=== PATIENT | female | born 1955 | race Caucasian/White ===

== ENCOUNTER 2017-03-29 07:09 | Day surgery (SDC) | payer MEDICARE ==
[2017-03-29] MEDS ORDERED: NACL 0.9% 500 ML 500 ML IV SCH (08:00)
[2017-03-29 08:09] LABS: Basophils % (Auto) 0.5 % (0.0-1.8); Hematocrit 31.4 % (30.3-42.9); Hemoglobin 10.5 gm/dl (10.1-14.3); Mean Corpuscular HGB Conc 33 % (30-34); Mean Corpuscular Hemoglobin 30 pg (28-32); Mean Corpuscular Volume 91 fl (79-97); Platelet Count 184 K/mm3 (140-440); Red Blood Count 3.47 M/mm3 (3.65-5.03); Red Cell Distribution Width 13.9 % (13.2-15.2); White Blood Count 5.6 K/mm3 (4.5-11.0)
[2017-03-29 08:19] LABS: INR 0.95 (0.87-1.13)
[2017-03-29 08:20] LABS: Anion Gap 15 mmol/L; BUN/Creatinine Ratio 27.14; Blood Urea Nitrogen 19 mg/dL (7-17); Carbon Dioxide 26 mmol/L (22-30); Chloride 103.6 mmol/L (98-107); Glucose 124 mg/dL (65-100); Potassium 3.5 mmol/L (3.6-5.0); Sodium 141 mmol/L (137-145)
[2017-03-29] MEDS ORDERED: HEPARIN/NS 5000 UNIT/500ML(CATH LAB) 1,000 ML IR ONE (08:35)
[2017-03-29] MEDS ORDERED: HEPARIN 10,000 UNITS/10 ML ONE (08:35)
[2017-03-29] MEDS ORDERED: XYLOCAINE 2% INFILTRATI ONE (08:35)
[2017-03-29] MEDS ORDERED: NITROGLYCERIN SYRINGE 0 ML ONE (08:35)
[2017-03-29] MEDS ORDERED: CALAN ONE (08:35)
[2017-03-29] MEDS ORDERED: VERSED ONE (08:36)
[2017-03-29] MEDS ORDERED: SUBLIMAZE ONE (08:37)
[2017-03-29] MEDS ORDERED: ECOTRIN PO ONE (09:00)
--- NOTE | 2017-03-29 09:59 | Cardiac Catherization Report ---
CARDIAC CATHETERIZATION REFERRING PHYSICIAN: Taiwo Mireles M.D. INDICATION FOR PROCEDURE: The patient is a very pleasant 62-year-old female with a history of tobacco abuse, coronary artery disease, coronary bypass surgery, diabetes, hypertension, hyperlipidemia, and peripheral vascular disease, who had an abnormal stress test, was having some recurrent chest pain. She is referred for left heart catheterization. Risks, benefits, and potential alternatives explained at length prior to obtaining informed consent. She is on beta blockade and long-acting nitrate, referred for left heart catheterization. Risks, benefits, and potential alternatives explained at length. PROCEDURE IN DETAIL: The patient was brought to the catheterization lab in a postabsorptive state, prepped and draped in sterile fashion. We went groin and given her bypass, 8 mL of 2% lidocaine used to anesthetize the right groin. A standard 6-[place] sheath used to cannulate the right common femoral artery via modified Seldinger technique. All exchanges were performed to exchange a J-tip guidewire. JL3.5 catheter used to engage left main. No dampening or ventricularization. Cineangiography performed in all projections. JR4 catheter used to cross the aortic valve under fluoroscopic guidance. Left ventriculography performed in 30 ANDRE and 30 SINHALA projections via hand injections, catheter flushed. Manual pullback performed with continuous pressure monitoring. Catheter used to engage the right coronary. No dampening or ventricularization. Cineangiography performed in all projections. Next, catheter used to engage the SVG to diagonal. Cineangiography performed in all projections. Next, catheter was used to engage the left subclavian. Catheter was advanced carefully over wire and to engage the BAIRD selectively. Selective BAIRD angiography is performed. Catheter was removed carefully from the left subclavian over a wire, sheath removed. Manual pressured used to achieve hemostasis. DATA: Aortic pressure is 120/60, LV pressure is 120, LVEDP of 24 mmHg. Left ventriculography revealed normal systolic performance with estimated ejection fraction of 55-60%. No evidence of aortic stenosis. CORONARY ANATOMY: This is a right dominant system. Right coronary is a moderate sized vessel, courses AV groove, distally bifurcates in the posterior and descending, posterolateral branch. Noticed there is a 25% proximal right coronary stenosis. No other significant disease identified. Right to left collaterals were identified. The SVG to the first diagonal is widely patent, small distal vessel disease. The left main is patent. The left circumflex is patent. There is a 25% ostial left circumflex stenosis, 30-40% mid left circumflex stenosis, this is a small vessel. LAD is a moderate sized vessel, courses anterior intergroove, is occluded in the mid segment. BAIRD to LAD is widely patent. SVG to diagonal is widely patent. Diffuse distal moderate small vessel disease is identified. CONCLUSIONS: 1. Severe [place] coronary artery disease, the mid LAD with chronic total occlusion, nonobstructive disease in the left circumflex and right coronary including 25% proximal right coronary and 30 to 40% mid left circumflex small vessels, patent BAIRD to LAD, patent SVG to diagonal. 2. Preserved left ventricular function, estimated ejection fraction of 55-60%. 3. No evidence of aortic stenosis. Recommend aggressive risk factor modification. The patient continues to smoke, absolutely needs to quit smoking, consider Ranexa therapy. Results of the procedure were explained at length to the patient and family. All questions and concerns were addressed. The patient will follow up with Dr. Mireles in the office. Standard Groin care. JOB# [id number] SBM/NTS
[2017-03-29] MEDS ORDERED: PLAVIX PO SCH (10:00)
[2017-03-29 15:52] VITALS: BP 125/52
--- NOTE | 2017-04-02 16:26 | Short Stay Summary ---
Short Stay Documentation Date of service: 04/02/17 - History H&P: obtained from office - Allergies and Medications Current Medications: Allergies lisinopril Allergy (Severe, Verified 11/12/13 07:03) Shortness of Breath constant coughing codeine Allergy (Intermediate, Verified 11/12/13 07:03) Itching Tbaheai-Fnq-Bad Reductase Inhibitor Allergy (Verified 02/20/16 13:06) Unknown Home Medications Medication Instructions Recorded Confirmed Last Taken Type Carvedilol [Coreg] 25 mg PO BID 11/12/13 03/29/17 03/28/17 History Gabapentin 300 mg PO TID 11/12/13 03/29/17 03/28/17 History Insulin Glargine,Hum.rec.anlog 64 units SQ HS 11/12/13 03/29/17 03/28/17 History [Lantus Solostar] Insulin NPL/Insulin Lispro 20 units SQ TID 11/12/13 03/29/17 03/28/17 History [HumaLOG Mix 50-50 Kwikpen] Isosorbide Mononitrate [Isosorbide 120 mg PO DAILY 11/12/13 03/29/17 03/28/17 History Mononitrate ER (IMDUR)] Losartan/Hydrochlorothiazide 1 tab PO DAILY 11/12/13 03/29/17 03/28/17 History [Hyzaar 100-25 TAB] Metformin HCl [metFORMIN ER] 500 mg PO BID 11/12/13 03/29/17 03/28/17 History traMADol [Ultram 50 MG tab] 50 mg PO Q6HR PRN #20 tablet 03/28/15 03/29/1703/28 Rx Aspirin EC [Ecotrin] 325 mg PO QDAY 03/29/17 03/29/17 03/28/17 History Clopidogrel [Plavix] 75 mg PO QDAY 03/29/17 03/29/17 03/27/17 History Furosemide [Lasix] 20 mg PO QDAY 03/29/17 03/29/17 03/28/17 History Gemfibrozil [Lopid] 600 mg PO BID 03/29/17 03/29/17 03/28/17 History Melatonin [Vitajoy] 5 mg PO HS PRN 03/29/17 03/29/17 2 Weeks Ago History Nitrostat 0.4 mg SL PRN PRN 03/29/17 03/29/17 03/28/17 History Ranitidine HCl [Heartburn Relief] 150 mg PO BID 03/29/17 03/29/17 03/27/17 History amLODIPine [Norvasc] 5 mg PO DAILY 03/29/17 03/29/17 03/28/17 History - Brief post op/procedure progress note Date of procedure: 03/29/17 Pre-op diagnosis: abnormal stress test Post-op diagnosis: same Procedure: C - see cath report Anesthesia: local Estimated blood loss: none Condition: stable - Disposition Condition at discharge: Stable Disposition: DC-01 TO HOME OR SELFCARE - Discharge Diagnoses (1) Abnormal stress test Status: Acute (2) Chest pain Status: Acute Qualifiers: Chest pain type: C Ischemic chest pain type: I (3) CAD (coronary artery disease) Status: Chronic Qualifiers: Coronary Disease-Associated Artery/Lesion type: C [place] vs. transplanted heart: N Associated angina: A (4) Hx of CABG Status: Chronic Short Stay Discharge Plan Activity: advance as tolerated Diet: low fat, low cholesterol, low salt Wound: open to air, keep clean and dry, per your surgeon's advice Follow up with: RENARD KELLY MD [Primary Care Provider] - 7 Days Forms: CardCath PCI D/C Instructions
== END 2017-03-29 14:30 | disposition home or self-care (01) ==
LOC: CATHLABREC 07:09
PROVIDERS: ATTEND Internal Medicine
DX: I25.10 Atherosclerotic heart disease of native coronary artery without angina pectoris (principal); I11.0 Hypertensive heart disease with heart failure; I50.42 Chronic combined systolic (congestive) and diastolic (congestive) heart failure; F17.210 Nicotine dependence, cigarettes, uncomplicated; E11.9 Type 2 diabetes mellitus without complications; E78.5 Hyperlipidemia, unspecified; E66.9 Obesity, unspecified; Z68.36 Body mass index [BMI] 36.0-36.9, adult; Z98.51 Tubal ligation status; Z88.5 Allergy status to narcotic agent; Z88.8 Allergy status to other drugs, medicaments and biological substances; Z79.4 Long term (current) use of insulin; Z79.899 Other long term (current) drug therapy; Z79.01 Long term (current) use of anticoagulants; Z79.82 Long term (current) use of aspirin; Z86.79 Personal history of other diseases of the circulatory system; Z98.890 Other specified postprocedural states; Z82.49 Family history of ischemic heart disease and other diseases of the circulatory system
CPT/HCPCS: 36415; 80048; 82962; 85025; 85610; 85730; 93005; 93010; 93459; C1769; C1894; J1644; J2250; J3010; J7040; Q9967

== ENCOUNTER 2017-12-23 10:52 | Observation (INO) | payer MEDICARE ==
[2017-12-23 11:36] LABS: Basophils % (Auto) 0.5 % (0.0-1.8); Eosinophils % (Auto) 0.5 % (0.0-4.3); Hematocrit 30.8 % (30.3-42.9); Hemoglobin 9.6 gm/dl (10.1-14.3); Lymphocytes # (Auto) 1.1 K/mm3 (1.2-5.4); Lymphocytes % (Auto) 17.2 % (13.4-35.0); Mean Corpuscular HGB Conc 31 % (30-34); Mean Corpuscular Volume 75 fl (79-97); Monocytes # (Auto) 0.5 K/mm3 (0.0-0.8); Monocytes % (Auto) 7.9 % (0.0-7.3); Platelet Count 195 K/mm3 (140-440); Red Blood Count 4.13 M/mm3 (3.65-5.03); Red Cell Distribution Width 17.6 % (13.2-15.2)
[2017-12-23 11:38] LABS: Mean Corpuscular Hemoglobin 23 pg (28-32)
[2017-12-23] MEDS ORDERED: ZOFRAN IV ONE (11:42)
[2017-12-23] MEDS ORDERED: SUBLIMAZE IV ONE ×2 (11:42→14:11)
[2017-12-23 11:50] LABS: Alanine Aminotransferase 13 units/L (7-56); Albumin 3.5 g/dL (3.9-5); BUN/Creatinine Ratio 18; Blood Urea Nitrogen 11 mg/dL (7-17); Calcium 9.4 mg/dL (8.4-10.2); Hemolysis Index 3
--- NOTE | 2017-12-23 12:05 | Emergency Department Report ---
HPI - General Chief Complaint: Abdominal Pain Time Seen by Provider: 12/23/17 11:34 - HPI HPI: Room 6 The patient is a 62-year-old female presented with a chief complaint of abdominal pain nausea and vomiting. The patient states 2 days ago after eating fish, shrimp and hush puppies from [employer] she began developing nausea vomiting and diarrhea. The patient states the symptoms began approximately one hour after eating. The patient states she has some epigastric abdominal pain but then the pain has moved to her right flank. He denies dysuria or hematuria. Patient denies fever. The patient gives her pain a score of 8/10 Location: [See above] Duration: Constant 3 days Quality: Pain Severity: 8/10 Modifying factors: [see above] Context: [see above] Mode of transportation: [not driving] ED Past Medical Hx - Past Medical History Hx Hypertension: Yes Hx Congestive Heart Failure: Yes Hx Diabetes: Yes Hx Arthritis: Yes Hx Kidney Stones: Yes Additional medical history: Lithotripsy, stent, urosepsis, kidney stones. dvt - Surgical History Hx Open Heart Surgery: Yes (2011) Hx Cholecystectomy: Yes (1975) Additional Surgical History: stents in legs - Family History Family history: no significant - Social History Smoking Status: Former Smoker (none times less than 1 month) Substance Use Type: None - Medications Home Medications: Home Medications Medication Instructions Recorded Confirmed Last Taken Type Carvedilol [Coreg] 25 mg PO BID 11/12/13 12/23/17 03/28/17 History Gabapentin 600 mg PO TID 11/12/13 12/23/17 03/28/17 History Insulin Lispro Protamin/Lispro 20 units SQ TID 11/12/13 12/23/17 03/28/17 History [HumaLOG Mix 50-50 Kwikpen] Isosorbide Mononitrate [Isosorbide 120 mg PO DAILY 11/12/13 12/23/17 03/28/17 History Mononitrate ER (IMDUR)] traMADol [Ultram 50 MG tab] 50 mg PO Q6HR PRN #20 tablet 03/28/15 12/23/1703/28 Rx Furosemide [Lasix] 20 mg PO QDAY 03/29/17 12/23/17 03/28/17 History Gemfibrozil [Lopid] 600 mg PO BID 03/29/17 12/23/17 03/28/17 History amLODIPine [Norvasc] 5 mg PO DAILY 03/29/17 12/23/17 03/28/17 History Insulin Glargine,Hum.rec.anlog 60 units SUB-Q HS 12/23/17 12/23/17 Unknown History [Basaglar Kwikpen U-100] Varenicline Tartrate [Chantix] 1 mg PO BID 12/23/17 12/23/17 Unknown History metFORMIN [Glucophage] 500 mg PO BID 12/23/17 12/23/17 Unknown History ED Review of Systems ROS: Stated complaint: NAUSE/VOMITING/DIARRHEA Other details as noted in HPI Constitutional: denies: fever Eyes: denies: eye pain ENT: denies: throat pain Cardiovascular: denies: chest pain Gastrointestinal: abdominal pain, nausea, vomiting, diarrhea Genitourinary: denies: dysuria Musculoskeletal: denies: back pain Neurological: denies: headache Physical Exam - Physical Exam Vital Signs: Vital Signs 12/23/17 11:09 Temperature 98.4 F Pulse Rate 60 Respiratory 19 Rate Blood Pressure 138/97 O2 Sat by Pulse 98 Oximetry Physical Exam: GENERAL: The patient is well-developed well-nourished female lying on stretcher appearing to be in mild discomfort. [] HEENT: Normocephalic. Atraumatic. Extraocular motions are intact. Patient has moist mucous membranes. NECK: Supple. Trachea midline CHEST/LUNGS: Clear to auscultation. There is no respiratory distress noted. HEART/CARDIOVASCULAR: Regular. There is no tachycardia. There is no gallop rub or murmur. ABDOMEN: Abdomen is soft, nontender to palpation. Patient complains of pain in the right flank. Patient has normal bowel sounds. There is no abdominal distention. SKIN: There is no rash. There is no edema. There is no diaphoresis. NEURO: The patient is awake, alert, and oriented. The patient is cooperative. The patient has normal speech MUSCULOSKELETAL: There is no evidence of acute injury. ED Course Vital Signs 12/23/17 11:09 Temperature 98.4 F Pulse Rate 60 Respiratory 19 Rate Blood Pressure 138/97 O2 Sat by Pulse 98 Oximetry - Reevaluation(s) Reevaluation #1: 12/23/17 13:14 Patient resting comfortably. No complaints currently Reevaluation #2: 12/23/17 14:44 Informed by nursing that the patient began complaining of chest pressure. The patient states she got short of breath, diaphoretic and nauseous but did not vomit. The patient states her pressure lasted for approximately 1 minute and then resolved. Patient has extensive cardiac history, subsequently the patient will be admitted to the hospital for further observation ED Medical Decision Making - Lab Data Result diagrams: 12/23/17 Unknown 12/23/17 Unknown Laboratory Tests 12/23/17 12/23/17 12/23/17 14:42 Unknown Unknown WBC 6.6 RBC 4.13 Hgb 9.6 L Hct 30.8 MCV 75 L MCH 23 L MCHC 31 RDW 17.6 H Plt Count 195 Lymph % (Auto) 17.2 [place] % (Auto) 7.9 H Eos % (Auto) 0.5 Baso % (Auto) 0.5 Lymph # 1.1 L [place] # 0.5 Eos # 0.0 Baso # 0.0 Seg Neutrophils % 73.9 H Seg Neutrophils # 4.9 Sodium 137 Potassium 4.2 Chloride 100.0 Carbon Dioxide 24 Anion Gap 17 BUN 11 Creatinine 0.6 L Estimated GFR > 60 BUN/Creatinine Ratio 18 Glucose 143 H Calcium 9.4 Total Bilirubin 0.70 AST 31 ALT 13 Alkaline Phosphatase 170 H Total Creatine Kinase 119 CK-MB (CK-2) 1.8 CK-MB (CK-2) Rel Index 1.5 Troponin T < 0.010 Total Protein 7.8 Albumin 3.5 L Albumin/Globulin Ratio 0.8 Lipase 12/23/17 Unknown WBC RBC Hgb Hct MCV MCH MCHC RDW Plt Count Lymph % (Auto) [place] % (Auto) Eos % (Auto) Baso % (Auto) Lymph # [place] # Eos # Baso # Seg Neutrophils % Seg Neutrophils # Sodium Potassium Chloride Carbon Dioxide Anion Gap BUN Creatinine Estimated GFR BUN/Creatinine Ratio Glucose Calcium Total Bilirubin AST ALT Alkaline Phosphatase Total Creatine Kinase CK-MB (CK-2) CK-MB (CK-2) Rel Index Troponin T Total Protein Albumin Albumin/Globulin Ratio Lipase 25 Laboratory Tests 12/23/17 12/23/17 12/23/17 14:08 14:42 Unknown WBC 6.6 RBC 4.13 Hgb 9.6 L Hct 30.8 MCV 75 L MCH 23 L MCHC 31 RDW 17.6 H Plt Count 195 Lymph % (Auto) 17.2 [place] % (Auto) 7.9 H Eos % (Auto) 0.5 Baso % (Auto) 0.5 Lymph # 1.1 L [place] # 0.5 Eos # 0.0 Baso # 0.0 Seg Neutrophils % 73.9 H Seg Neutrophils # 4.9 Sodium Potassium Chloride Carbon Dioxide Anion Gap BUN Creatinine Estimated GFR BUN/Creatinine Ratio Glucose Calcium Total Bilirubin AST ALT Alkaline Phosphatase Total Creatine Kinase 119 CK-MB (CK-2) 1.8 CK-MB (CK-2) Rel Index 1.5 Troponin T < 0.010 Total Protein Albumin Albumin/Globulin Ratio Lipase Urine Color Yellow Urine Turbidity Clear Urine pH 6.0 Ur Specific [place] 1.026 Urine Protein 30 mg/dl Urine Glucose (UA) Neg Urine Ketones Tr Urine Blood Neg Urine Nitrite Neg Urine Bilirubin Neg Urine Urobilinogen < 2.0 Ur Leukocyte Esterase Neg Urine WBC (Auto) 1.0 Urine RBC (Auto) < 1.0 U Epithel Cells (Auto) < 1.0 Urine Bacteria (Auto) 1+ Urine Mucus Few 12/23/17 12/23/17 Unknown Unknown WBC RBC Hgb Hct MCV MCH MCHC RDW Plt Count Lymph % (Auto) [place] % (Auto) Eos % (Auto) Baso % (Auto) Lymph # [place] # Eos # Baso # Seg Neutrophils % Seg Neutrophils # Sodium 137 Potassium 4.2 Chloride 100.0 Carbon Dioxide 24 Anion Gap 17 BUN 11 Creatinine 0.6 L Estimated GFR > 60 BUN/Creatinine Ratio 18 Glucose 143 H Calcium 9.4 Total Bilirubin 0.70 AST 31 ALT 13 Alkaline Phosphatase 170 H Total Creatine Kinase CK-MB (CK-2) CK-MB (CK-2) Rel Index Troponin T Total Protein 7.8 Albumin 3.5 L Albumin/Globulin Ratio 0.8 Lipase 25 Urine Color Urine Turbidity Urine pH Ur Specific [place] Urine Protein Urine Glucose (UA) Urine Ketones Urine Blood Urine Nitrite Urine Bilirubin Urine Urobilinogen Ur Leukocyte Esterase Urine WBC (Auto) Urine RBC (Auto) U Epithel Cells (Auto) Urine Bacteria (Auto) Urine Mucus - EKG Data -: EKG Interpreted by Me EKG shows normal: sinus rhythm Rate: normal - EKG Data When compared to previous EKG there are: previous EKG unavailable Interpretation: other (no ischemic changes seen) - Radiology Data Radiology results: report reviewed (CT abdomen and pelvis), image reviewed (CT abdomen and pelvis) CT abdomen and pelvis (read by radiologist)-no acute process noted in the abdomen or pelvis - Differential Diagnosis foodborne illness, gastroenteritis, partial small bowel obstruction Critical care attestation.: If time is entered above; I have spent that time in minutes in the direct care of this critically ill patient, excluding procedure time. ED Disposition Clinical Impression: Acute abdominal pain, Gastroenteritis, Chest pain Disposition: OP ADMIT IP TO THIS HOSP Is pt being admited?: Yes Does the pt Need Aspirin: Yes Condition: Fair Instructions: Chest Pain (ED), Abdominal Pain (ED) Referrals: PRIMARY CARE, [Primary Care Provider] - 3-5 Days Time of Disposition: 16:16 (hospitalist notified (Dr Murphy))
[2017-12-23] MEDS ORDERED: NITRO-BID 2% TP ONE (14:31)
[2017-12-23 15:25] LABS: Creatine Kinase MB 1.8 ng/mL (0.0-4.0)
--- NOTE | 2017-12-23 15:26 | Cat Scan Report ---
CT ABDOMEN PELVIS WITH CONTRAST: HISTORY: Right flank pain, nausea, vomiting, diarrhea. COMPARISON: none. TECHNIQUE: Helical CT in 1.25mm intervals following IV contrast. Sagittal and coronal reconstructions. FINDINGS: Lung bases: The visualized lung bases are adequately aerated. Borderline to mild cardiomegaly is suspected. Liver: There is subtle surface nodularity in the liver as well as mild enlargement of the left hepatic lobe and caudate lobe consistent with mild cirrhosis. No focal liver mass is identified. Biliary system: Cholecystectomy has been performed. No biliary dilatation. Pancreas: Normal. Spleen: Normal. 11.3 cm. Kidneys/ureters/bladder: There are a few scattered cysts in both kidneys. The largest cyst measures 3.8 cm in the superior left kidney. There is no evidence for nephrolithiasis, hydronephrosis or evidence of pyelonephritis. The ureters and bladder are unremarkable. Adrenal glands: Normal. Aorta: Moderate diffuse calcifications. No stenosis or aneurysm. Intestines: Unremarkable given no oral contrast was administered. Appendix: Normal. Pelvic viscera: Normal. Ascites: None. Adenopathy: None. Musculoskeletal: Moderate thoracolumbar spondylosis. No fracture or suspicious bony lesion is identified. IMPRESSION: No acute process is identified in the abdomen or pelvis. Mild cirrhosis. Cholecystectomy. Bilateral renal cysts.
[2017-12-23] MEDS ORDERED: ASPIRIN PO ONE (15:41)
[2017-12-23 16:03] LABS: Bacteria,Urine 1+ /HPF (Negative); Bilirubin,Urine NEG (Negative); Blood,Urine NEG (Negative); Color,Urine Yellow (Yellow); Mucus,Urine FEW /HPF; RBC,Urine < 1.0 /HPF (0.0-6.0); Urobilinogen,Urine < 2.0 mg/dL (<2.0)
[2017-12-23] MEDS: MORPHINE IV PRN (17:23)
[2017-12-23] MEDS: ZOFRAN IV PRN ×2 (17:23→22:56)
--- NOTE | 2017-12-23 17:47 | XRay Report ---
FINAL REPORT EXAM: XR CHEST 1V AP HISTORY: chest pain TECHNIQUE: Frontal chest radiograph. PRIORS: None. FINDINGS: Median sternotomy wires are seen with fracturing of several of the median sternotomy wires. There is mild cardiomegaly. No focal consolidation. No pulmonary edema. No pleural effusion. No pneumothorax. No acute osseous abnormality. IMPRESSION: 1. No acute cardiopulmonary process. 2. Mild cardiomegaly. 3. Median sternotomy wires with fracturing of several of the wires.
--- NOTE | 2017-12-24 00:34 | Event Note ---
Date: 12/23/17 See dictated H/p in the reports
[2017-12-24] MEDS ORDERED: ULTRAM PO PRN (00:38)
[2017-12-24] MEDS ORDERED: SODIUM CHLORIDE FLUSH SYRINGE 10 ML IV PRN (00:43)
[2017-12-24] MEDS ORDERED: ZOFRAN IV PRN (00:43)
[2017-12-24] MEDS ORDERED: TYLENOL PO PRN (00:43)
[2017-12-24] MEDS ORDERED: NACL 0.9% 1000 ML 1,000 ML IV SCH (01:00)
[2017-12-24] MEDS: COREG PO SCH ×3 (01:15→23:47)
--- NOTE | 2017-12-24 01:28 | History and Physical Report ---
CHIEF COMPLAINT: 1. Abdominal pain. 2. Chest tightness. HISTORY OF PRESENT ILLNESS: A 62-year-old female, who developed nausea, vomiting, and abdominal pain for 2 days after eating fish, shrimp, and obtained hush puppies from [employer]. The patient continued to have nausea, vomiting, diarrhea for the last 48 hours. While in the ER, the patient developed retrosternal chest pain associated with diaphoresis, hence being admitted. No recent travel. No fever, no chills. PAST MEDICAL HISTORY: Significant for hypertension, congestive heart failure, diabetes, arthritis, kidney stones, stents, lithotripsy, and DVT. SURGICAL HISTORY: Open heart surgery in 2011, cholecystectomy in 1975, stents in both legs consistent with peripheral arterial disease. FAMILY HISTORY: Hypertension. SOCIAL HISTORY: Former smoker, recently stopped. CURRENT MEDICATIONS: On the chart. REVIEW OF SYSTEMS: Significant for retrosternal chest pain and also nausea, vomiting, diarrhea for the last 2 days, which is on down trend. Did not vomit for the last 4 hours. Otherwise, review of systems are negative. PHYSICAL EXAMINATION: GENERAL: Elderly female, cooperative during examination. VITAL SIGNS: Stable. Blood pressure is 132/50, temperature 97.9, pulse is 58, respirations 17, sats are 96%. HEENT: Unremarkable. Pupils equal and reactive. NECK: Supple, no lymphadenopathy, no thyromegaly. LUNGS: Clear to auscultation and percussion. Good air entry. CARDIOVASCULAR: S1, S2 heard. No gallop, no murmur, no rub. Apical impulse in the left fifth intercostal space and midclavicular line. ABDOMEN: Soft and benign. No hepatosplenomegaly. No guarding, no rigidity. Hernial orifices are normal. EXTREMITIES: Good pedal pulses. No pedal edema. CENTRAL NERVOUS SYSTEM: Alert and oriented x 4, nonfocal exam. SKIN: Normal. LABORATORY DATA: Significant for white count of 6600, H and H of 9.6 and 30.8, platelet count of 195,000. Sodium 137, potassium of 4.2, BUN and creatinine of 11 and 0.6, glucose of 143, alk phos of 170, albumin of 3.5. EKG shows sinus rhythm, heart rate of about [address] of the abdomen and pelvis, no acute process. ASSESSMENT AND PLAN: 1. Chest pain, rule out myocardial infarction, chest pain protocol. 2. Acute gastroenteritis, treat the gastroenteritis. Intravenous fluids, intravenous Zofran, Phenergan suppositories as necessary. It should be self-limiting disease. 3. Insulin-dependent diabetes, continue insulin and coverage. 4. Hypertension, continue carvedilol. 5. Peripheral neuropathy, continue gabapentin 600 mg twice a day. 6. Coronary artery disease, continue isosorbide mononitrate. 7. Hyperlipidemia, continue gemfibrozil. 8. Nicotine dependence, continue on Nicoderm patch. No Chantix at this point. 9. Deep venous thrombosis prophylaxis, Lovenox 40 mg subcutaneous daily. [facility]# [id number] ANJELICA/NTS
[2017-12-24] MEDS: MORPHINE IV PRN (08:29)
[2017-12-24 08:39] LABS: Creatine Kinase MB 2.5 ng/mL (0.0-4.0)
[2017-12-24] MEDS ORDERED: LEXISCAN IV ONE ×3 (09:15→11:29)
[2017-12-24] MEDS ORDERED: SODIUM CHLORIDE FLUSH SYRINGE 10 ML IV SCH (10:00)
--- NOTE | 2017-12-24 11:34 | Discharge Summary ---
Providers - Providers Date of Admission: 12/23/17 16:17 Attending physician: MARJORIE GEORGE MD Primary care physician: [employer] ANALYST Hospitalization Reason for admission: chest pain Condition: Stable Hospital course: patient is a 62-year-old female presented with a chief complaint of abdominal pain nausea and vomiting. The patient states 2 days ago after eating fish, shrimp and hush puppies from [email or web address] she began developing nausea vomiting and diarrhea. Patient complained of epigastric pain which was right flank located and 8 over 10 in intensity. Denies no other family members sick. patient proceeded to stress test and was negative. she was monitored an extra day due to gi symptoms and lathergy. she will follow with PCP for allergy testing. Acute gastroenteritis Atypical chest pain likely secondary to abdominal pain Diabetes mellitus Peripheral neuropathy Hypertension HyperLipidemia Tobacco use disorder Disposition: TO HOME OR SELFCARE Time spent for discharge: 35 mins Core Measure Documentation - Palliative Care Palliative Care/ Comfort Measures: Not Applicable - Core Measures Any of the following diagnoses?: none - VTE Discharge Requirements Deep Vein Thrombosis/Pulmonary Embolism Present on Admission: No Exam - Physical Exam Narrative exam: VITAL SIGNS: Reviewed. GENERAL: The patient appeared well nourished and normally developed otherwise lethargic. Vital signs as documented. HEAD: No signs of head trauma. EYES: Pupils are equal. Extraocular motions intact. EARS: Hearing grossly intact. MOUTH: Oropharynx is normal. NECK: No adenopathy, no JVD. CHEST: Chest with clear breath sounds bilaterally. No wheezes, rales, or rhonchi. CARDIAC: Regular rate and rhythm. S1 and S2, without murmurs, gallops, or rubs. VASCULAR: No Edema. Peripheral pulses normal and equal in all extremities. ABDOMEN: Soft, generalized tenderness. No sign of distention. No rebound or guarding, and no masses palpated. Bowel Sounds normal. MUSCULOSKELETAL: Good range of motion of all major joints. Extremities without clubbing, cyanosis or edema. NEUROLOGIC EXAM: Awake but lethargic and oriented x 3. No focal sensory or strength deficits. Speech normal. Follows commands. PSYCHIATRIC: Mood normal. SKIN: No rash or lesions. - Constitutional Vitals: Temp Pulse Resp BP Pulse Ox 98.0 F 61 28 H 130/49 97 12/24/17 08:04 12/24/17 08:38 12/24/17 08:39 12/24/17 08:04 12/24/17 08:04 Plan Activity: advance as tolerated, fall precautions Diet: low cholesterol Additional Instructions: FOLLOW WITH [facility] FOR ALLERGY TESTING OR AT PCP OFFICE IF OFFERED Follow up with: PRIMARY CARE, [Primary Care Provider] - 3-5 Days Prescriptions: Ondansetron [Zofran Odt] 4 mg PO Q8HR #30 tab.[email or web address]
--- NOTE | 2017-12-24 13:47 | Progress Note ---
Assessment and Plan Assessment and plan: patient is a 62-year-old female presented with a chief complaint of abdominal pain nausea and vomiting. The patient states 2 days ago after eating fish, shrimp and hush puppies from [employer] she began developing nausea vomiting and diarrhea. Patient complained of epigastric pain which was right flank located and 8 over 10 in intensity. Denies no other family members sick. Acute gastroenteritis Atypical chest pain likely secondary to abdominal pain referred to the Diabetes mellitus Peripheral neuropathy Hypertension HyperLipidemia Tobacco use disorder Plan of care * Continue supportive care, pain control advanced diet as tolerated * Await stress test results * Continue insulin therapy and gabapentin. * DVT and GI prophylaxis * She is still remarkably too weak to the discharge requires continued inpatient stay. * We'll reevaluate in a.m. and if tolerating diet with improvement in pain will be discharged also advised the patient to follow up with primary care physician for allergy testing or referral to an equities analyst. History Interval history: Patient seen and examined, still with abdominal pain 3/10 reports improvement but not yet able to tolerate PO Hospitalist Physical - Physical exam Narrative exam: VITAL SIGNS: Reviewed. GENERAL: The patient appeared well nourished and normally developed otherwise lethargic. Vital signs as documented. HEAD: No signs of head trauma. EYES: Pupils are equal. Extraocular motions intact. EARS: Hearing grossly intact. MOUTH: Oropharynx is normal. NECK: No adenopathy, no JVD. CHEST: Chest with clear breath sounds bilaterally. No wheezes, rales, or rhonchi. CARDIAC: Regular rate and rhythm. S1 and S2, without murmurs, gallops, or rubs. VASCULAR: No Edema. Peripheral pulses normal and equal in all extremities. ABDOMEN: Soft, generalized tenderness. No sign of distention. No rebound or guarding, and no masses palpated. Bowel Sounds normal. MUSCULOSKELETAL: Good range of motion of all major joints. Extremities without clubbing, cyanosis or edema. NEUROLOGIC EXAM: Awake but lethargic and oriented x 3. No focal sensory or strength deficits. Speech normal. Follows commands. PSYCHIATRIC: Mood normal. SKIN: No rash or lesions. - Constitutional Vitals: Temp Pulse Resp BP Pulse Ox 98.0 F 61 28 H 130/49 97 12/24/17 08:04 12/24/17 08:38 12/24/17 08:39 12/24/17 08:04 12/24/17 08:04 Results - Labs CBC & Chem 7: 12/25/17 04:47 12/25/17 04:47 Labs: Laboratory Last Values WBC 6.6 K/mm3 (4.5-11.0) 12/23/17 Unknown RBC 4.13 M/mm3 (3.65-5.03) 12/23/17 Unknown Hgb 9.6 gm/dl (10.1-14.3) L 12/23/17 Unknown Hct 30.8 % (30.3-42.9) 12/23/17 Unknown MCV 75 fl (79-97) L 12/23/17 Unknown MCH 23 pg (28-32) L 12/23/17 Unknown MCHC 31 % (30-34) 12/23/17 Unknown RDW 17.6 % (13.2-15.2) H 12/23/17 Unknown Plt Count 195 K/mm3 (140-440) 12/23/17 Unknown Lymph % (Auto) 17.2 % (13.4-35.0) 12/23/17 Unknown Parker % (Auto) 7.9 % (0.0-7.3) H 12/23/17 Unknown Eos % (Auto) 0.5 % (0.0-4.3) 12/23/17 Unknown Baso % (Auto) 0.5 % (0.0-1.8) 12/23/17 Unknown Lymph # 1.1 K/mm3 (1.2-5.4) L 12/23/17 Unknown Parker # 0.5 K/mm3 (0.0-0.8) 12/23/17 Unknown Eos # 0.0 K/mm3 (0.0-0.4) 12/23/17 Unknown Baso # 0.0 K/mm3 (0.0-0.1) 12/23/17 Unknown Seg Neutrophils % 73.9 % (40.0-70.0) H 12/23/17 Unknown Seg Neutrophils # 4.9 K/mm3 (1.8-7.7) 12/23/17 Unknown Sodium 137 mmol/L (137-145) 12/23/17 Unknown Potassium 4.2 mmol/L (3.6-5.0) 12/23/17 Unknown Chloride 100.0 mmol/L (98-107) 12/23/17 Unknown Carbon Dioxide 24 mmol/L (22-30) 12/23/17 Unknown Anion Gap 17 mmol/L 12/23/17 Unknown BUN 11 mg/dL (7-17) 12/23/17 Unknown Creatinine 0.6 mg/dL (0.7-1.2) L 12/23/17 Unknown Estimated GFR > 60 ml/min 12/23/17 Unknown BUN/Creatinine Ratio 18 % 12/23/17 Unknown Glucose 143 mg/dL (65-100) H 12/23/17 Unknown Hemoglobin A1c 6.7 % (4-6) H 12/24/17 01:20 Calcium 9.4 mg/dL (8.4-10.2) 12/23/17 Unknown Total Bilirubin 0.70 mg/dL (0.1-1.2) 12/23/17 Unknown AST 31 units/L (5-40) 12/23/17 Unknown ALT 13 units/L (7-56) 12/23/17 Unknown Alkaline Phosphatase 170 units/L (35-129) H 12/23/17 Unknown Total Creatine Kinase 232 units/L (30-135) H 12/24/17 07:35 CK-MB (CK-2) 2.5 ng/mL (0.0-4.0) 12/24/17 07:35 CK-MB (CK-2) Rel Index 1.0 (0-4) 12/24/17 07:35 Troponin T < 0.010 ng/mL (0.00-0.029) 12/24/17 07:35 Total Protein 7.8 g/dL (6.3-8.2) 12/23/17 Unknown Albumin 3.5 g/dL (3.9-5) L 12/23/17 Unknown Albumin/Globulin Ratio 0.8 % 12/23/17 Unknown Lipase 25 units/L (13-60) 12/23/17 Unknown Urine Color Yellow (Yellow) 12/23/17 14:08 Urine Turbidity Clear (Clear) 12/23/17 14:08 Urine pH 6.0 (5.0-7.0) 12/23/17 14:08 Ur Specific [place] 1.026 (1.003-1.030) 12/23/17 14:08 Urine Protein 30 mg/dl mg/dL (Negative) 12/23/17 14:08 Urine Glucose (UA) Neg mg/dL (Negative) 12/23/17 14:08 Urine Ketones Tr mg/dL (Negative) 12/23/17 14:08 Urine Blood Neg (Negative) 12/23/17 14:08 Urine Nitrite Neg (Negative) 12/23/17 14:08 Urine Bilirubin Neg (Negative) 12/23/17 14:08 Urine Urobilinogen < 2.0 mg/dL (<2.0) 12/23/17 14:08 Ur Leukocyte Esterase Neg (Negative) 12/23/17 14:08 Urine WBC (Auto) 1.0 /HPF (0.0-6.0) 12/23/17 14:08 Urine RBC (Auto) < 1.0 /HPF (0.0-6.0) 12/23/17 14:08 U Epithel Cells (Auto) < 1.0 /HPF (0-13.0) 12/23/17 14:08 Urine Bacteria (Auto) 1+ /HPF (Negative) 12/23/17 14:08 Urine Mucus Few /HPF 12/23/17 14:08
[2017-12-24] MEDS: HumaLOG SUB-Q SCH ×3 (14:30→23:53)
[2017-12-24] MEDS: LOPID PO SCH ×2 (14:52→23:46)
[2017-12-24] MEDS: PERCOCET 5/325 PO PRN ×2 (14:52→23:46)
[2017-12-24] MEDS: NEURONTIN PO SCH ×3 (14:52→23:52)
[2017-12-24] MEDS: LASIX PO SCH (14:55)
[2017-12-24] MEDS: IMDUR PO SCH (14:56)
[2017-12-24] MEDS: PEPCID IV SCH ×2 (14:57→23:45)
[2017-12-24] MEDS: NORVASC PO SCH (14:57)
--- NOTE | 2017-12-24 20:33 | Treadmill Report ---
MYOCARDIAL PERFUSION IMAGING STUDY Resting scan revealed slightly diminished radioisotope activity in inferior wall area. On post-Lexiscan images, there was homogeneous radioisotope activity throughout the myocardium. On gated scan, ejection fraction was 53% without any segmental motion abnormality. IMPRESSION: This test is negative for ischemia. JOB# [id number] KR/NTS
[2017-12-24] MEDS ORDERED: INSULIN GLARGINE HUM REC ANLOG 60 UNIT SUB-Q SCH (22:00)
[2017-12-24] MEDS ORDERED: LANTUS SUB-Q SCH (22:00)
[2017-12-25 05:26] LABS: Basophils # (Auto) 0.1 K/mm3 (0.0-0.1); Basophils % (Auto) 0.7 % (0.0-1.8); Eosinophils # (Auto) 0.1 K/mm3 (0.0-0.4); Eosinophils % (Auto) 1.3 % (0.0-4.3); Hematocrit 26.9 % (30.3-42.9); Hemoglobin 8.2 gm/dl (10.1-14.3); Lymphocytes # (Auto) 1.8 K/mm3 (1.2-5.4); Lymphocytes % (Auto) 23.9 % (13.4-35.0); Mean Corpuscular HGB Conc 31 % (30-34); Mean Corpuscular Volume 76 fl (79-97); Monocytes # (Auto) 1.1 K/mm3 (0.0-0.8); Monocytes % (Auto) 15.2 % (0.0-7.3); Platelet Count 181 K/mm3 (140-440); Red Blood Count 3.56 M/mm3 (3.65-5.03); Red Cell Distribution Width 17.6 % (13.2-15.2)
[2017-12-25 05:29] LABS: Mean Corpuscular Hemoglobin 23 pg (28-32)
[2017-12-25 05:56] LABS: Albumin 3.2 g/dL (3.9-5); Calcium 8.9 mg/dL (8.4-10.2)
[2017-12-25] MEDS: PERCOCET 5/325 PO PRN ×2 (06:21→13:35)
[2017-12-25] MEDS: HumaLOG SUB-Q SCH ×2 (08:00→13:33)
[2017-12-25] MEDS: NEURONTIN PO SCH ×2 (08:35→13:34)
[2017-12-25] MEDS: COREG PO SCH (11:07)
[2017-12-25] MEDS: NORVASC PO SCH (11:07)
[2017-12-25] MEDS: LOPID PO SCH (11:07)
[2017-12-25] MEDS: PEPCID IV SCH (11:07)
[2017-12-25] MEDS: LASIX PO SCH (11:07)
[2017-12-25] MEDS: IMDUR PO SCH (11:07)
[2017-12-25 12:06] VITALS: BP 132/62
[2017-12-25] MEDS ORDERED: PEPCID PO SCH (22:00)
--- NOTE | 2018-01-07 14:40 | Query-Infection ---
Richa Cabrera____Shan Date:__01/07/2018 Folded Cloth Taper/CDS:___Teresa/Mandy Phone#:__[phone] Exercise your independent professional judgment when responding to this query. Questions asked do not imply a particular answer is desired or expected. We greatly appreciate your clarification on this issue. Clinical Documentation States: 62 Year old female was admitted on 12/23/2017 with a chief complaint of abdominal pain nausea and vomiting. The Discharge summary stated "Acute gastroenteritis." Clinical findings show: (please check applicable parameters) MD (12/23): 95 RR (12/23): 31 Infection, known /suspected, with some of the following indicators; Specify the infection: 3 General parameters [ ] Fever (core temp >38.30C or 100.40F) [ ] Hypothermia (core temp <36C) [X] Heart rate >90 bpm [X] Tachypnea: >20 bpm or pCO2 < 32 mmHg [ ] Altered mental status [ ] Significant edema / +ve fluid balance (>20 ml/kg 24 h) [ ] Hyperglycemia (Bl. glucose >110 mg/dl) w/o diabetes Inflammatory parameters [ ] Leukocytosis (white blood cell count >12,000/l) [ ] Leukopenia (white blood cell count <4,000/l) [ ] Bandemia (immature WBC > 10%) [ ] Leucocyte Left Shift [ ] Plasma procalcitonin>2 SD above the normal value Hemodynamic and tissue perfusion parameters [ ] Arterial hypotension(SBP <90 mmHg, MAP <70 mmHg,or a SBP drop >40 mmHg in adults) [ ] Hyperlactatemia (>3 mmol/l) [ ] Anion Gap (> 11mEG/l) [ ] Decreased capillary refill or mottling Organ dysfunction parameters [ ] Arterial hypoxemia (PaO2/FIO2 <300) [ ] Creatinine increase =0.5 mg/dl [ ] Acute oliguria (urine output <0.5 ml | kg |h or 45 mM/l for at least 2 hrs) [ ] Coagulation abnormalities (INR >1.5 or activated partial thromboplastin time >60 s) [ ] Ileus (absent aicha wel sounds) [ ] Thrombocytopenia (platelet count <100,000/l) [ ] Hyperbilirubinemia (plasma total bilirubin >4 mg/dl) According to the clinical indications above, can Bacteremia be further specified? If so, please indicate below and in your Progress Notes and/ or Discharge Summary. Indicate if the condition was present on admission. PHYSICIAN RESPONSE: [ ] Sepsis [ ] Severe Sepsis [ ] Septic Shock [ ] Septicemia [ ] Sepsis now resolved [ ] SIRS due to non-infectious cause with organ dysfunction [x ] SIRS due to non-infectious cause without organ dysfunction [ ] Other: [ ] Comment/Explanation: Present on Admission: [ x] Yes (Y) [ ] Clinically undeterminable (W) [ ] No (N) [ ] Ruled Out Please also document response in your Progress Notes and/or Discharge Summary and indicate if the condition was present on admission Notes: SIRS/ SIRS WITH ORGAN DYSFUNCTION Systemic inflammatory response syndrome (SIRS) generally refers to the systemic response to trauma/trivedi or other insult such as Acute Myocardial Infarction, Acute Pancreatitis, and Major Surgery with symptoms including fever, tachycardia , tachypnea, and leukocytosis (1). BACTEREMIA Presence of viable bacteria in the circulating blood (2). This term is reserved for patients that do not manifest above SIRS response. SEPTICEMIA Generally refers to a systemic disease associated with the presence of pathological microorganisms or toxins in the blood, which can include bacteria, viruses, fungi or other organisms (1). SEPSIS Generally refers to SIRS due infection (1). SEVERE SEPSIS Generally refers to sepsis associated with acute organ dysfunction (1). SEPTIC SHOCK Generally refers to circulatory failure associated with severe sepsis (2), and defined as hypotension or hypoperfusion despite adequate fluid resuscitation (1 hour) (3). REFERENCES: 1. [employer]/Society of Critical Care Medicine Consensus Conference. Definitions for sepsis and organ failure and guidelines for the use of innovative therapies in sepsis. Critical Care Med 1992;20:864 - 74. 2. Farhan mcclain MM, Holly MP, Augie BONNER, Rashard E, Arcenio D, Josh D, Otf J, Macrina SM , Tj JL, Ginny G; International Sepsis Definitions Conference. 2001 SCCM/ESICM/ACCP/ATS/SIS International Sepsis Definitions Conference. Intensive Care Med. 2002 Apr;29(4):530-8. Epub 2002Sep 25. Review. PubMed PMID:[id number] 3. ICD-9-CM Official Guidelines for Coding and Reporting 4. Medscape Drugs, Diseases and Procedures references 5. Rose Textbook of Internal Medicine. 18th Edition MTDD
== END 2017-12-25 14:17 | disposition home or self-care (01) ==
LOC: ED 10:52 → 4A 16:17 → INTOOBSV 16:17
PROVIDERS: ADMIT Internal Medicine; ATTEND Internal Medicine
DX: K52.9 Noninfective gastroenteritis and colitis, unspecified (principal); I11.0 Hypertensive heart disease with heart failure; I50.9 Heart failure, unspecified; E11.42 Type 2 diabetes mellitus with diabetic polyneuropathy; E78.5 Hyperlipidemia, unspecified; I25.10 Atherosclerotic heart disease of native coronary artery without angina pectoris; M19.90 Unspecified osteoarthritis, unspecified site; Z87.442 Personal history of urinary calculi; Z90.49 Acquired absence of other specified parts of digestive tract; Z87.891 Personal history of nicotine dependence; Z79.899 Other long term (current) drug therapy
CPT/HCPCS: 36415; 71045; 74177; 78452; 80053; 81001; 82550; 82553; 82962; 83036; 83690; 84484; 85025; 93005; 93010; 93017; 96361; 96372; 96374; 96375; 96376; 99285; A9502; G0378; J2270; J2405; J2785; J3010; Q9967; J1815

== ENCOUNTER 2019-03-31 15:09 | Emergency (ER) | payer MEDICARE ==
--- NOTE | 2019-03-31 15:34 | Event Note ---
ED Screening Note Date of service: 03/31/19 Time: 15:28 ED Screening Note: 64 y o female with pmh of CHF presents with retaining fluid in abdomen and extremity swelling This initial assessment/diagnostic orders/clinical plan/treatment(s) is/are subject to change based on patients health status, clinical progression and re- assessment by fellow clinical providers in the ED. Further treatment and workup at subsequent clinical providers discretion. Patient/guardian urged not to elope from the ED as their condition may be serious if not clinically assessed and managed. Initial orders include: labs
[2019-03-31 15:55] LABS: Basophils % (Auto) 0.5 % (0.0-1.8); Eosinophils # (Auto) 0.3 K/mm3 (0.0-0.4); Eosinophils % (Auto) 5.6 % (0.0-4.3); Hematocrit 35.1 % (30.3-42.9); Lymphocytes # (Auto) 0.9 K/mm3 (1.2-5.4); Lymphocytes % (Auto) 20.5 % (13.4-35.0); Mean Corpuscular HGB Conc 34 % (30-34); Mean Corpuscular Volume 99 fl (79-97); Monocytes # (Auto) 0.5 K/mm3 (0.0-0.8); Monocytes % (Auto) 10.2 % (0.0-7.3); Platelet Count 112 K/mm3 (140-440); Red Blood Count 3.56 M/mm3 (3.65-5.03); Red Cell Distribution Width 14.1 % (13.2-15.2)
[2019-03-31 16:05] LABS: INR 1.13 (0.87-1.13)
[2019-03-31 16:06] LABS: Partial Thromboplastin Time 32.1 Sec. (24.2-36.6)
[2019-03-31 16:20] LABS: Creatine Kinase MB 4.3 ng/mL (0.0-4.0)
[2019-03-31 16:21] LABS: Alanine Aminotransferase 20 units/L (7-56); Albumin 3.1 g/dL (3.9-5); BUN/Creatinine Ratio 17; Blood Urea Nitrogen 12 mg/dL (7-17); Calcium 8.6 mg/dL (8.4-10.2); Hemolysis Index 2
[2019-03-31] MEDS ORDERED: FUROSEMIDE 40 MG/4 ML INJ IV ONE (16:54)
--- NOTE | 2019-03-31 16:58 | Emergency Department Report ---
ED Shortness of Breath HPI - General Chief Complaint: Dyspnea/Respdistress Stated Complaint: CHF Time Seen by Provider: 03/31/19 15:28 Source: patient Mode of arrival: Ambulatory Limitations: No Limitations - History of Present Illness Initial Comments: Presents to ED with shortness of breath for the past 3 days, coughing productive sputum, increased abdominal girth, increased lower extremity swelling. Past medical history of CHF, have been using more pillows while sleeping. Noncompliant with medication and diet. She denies any fever, chills or night sweats. MD Complaint: shortness of breath -: Gradual Pain Scale: 2 Quality: dull Consistency: intermittent Improves With: nothing Worsens With: nothing Known History Of: congestive heart failure Associated Symptoms: cough - Related Data Home Medications Medication Instructions Recorded Confirmed Last Taken Carvedilol [Coreg] 25 mg PO BID 11/12/13 12/23/17 03/28/17 25 mg Gabapentin 600 mg PO TID 11/12/13 12/23/17 03/28/17 300 mg Insulin Lispro Protamin/Lispro 20 units SQ TID 11/12/13 12/23/17 03/28/17 [HumaLOG Mix 50-50 Kwikpen] 20 units Isosorbide Mononitrate [Isosorbide 120 mg PO DAILY 11/12/13 12/23/17 03/28/17 Mononitrate ER (IMDUR)] 60 mg Furosemide [Lasix TAB] 20 mg PO QDAY 03/29/17 12/23/17 03/28/17 Gemfibrozil [Lopid] 600 mg PO BID 03/29/17 12/23/17 03/28/17 amLODIPine 5 mg PO DAILY 03/29/17 12/23/17 03/28/17 Insulin Glargine,Hum.rec.anlog 60 units SUB-Q HS 12/23/17 12/23/17 Unknown [Basaglar Kwikpen U-100] Varenicline Tartrate [Chantix] 1 mg PO BID 12/23/17 12/23/17 Unknown metFORMIN [Glucophage] 500 mg PO BID 12/23/17 12/23/17 Unknown Previous Rx's Medication Instructions Recorded Last Taken Type traMADol [Ultram 50 MG tab] 50 mg PO Q6HR PRN #20 tablet 03/28/15 03/28/17 Rx Ondansetron [Zofran Odt] 4 mg PO Q8HR #30 tab.rapdis 12/24/17 Unknown Rx Allergies Allergy/AdvReac Type Severity Reaction Status Date / Time lisinopril Allergy Severe Shortness Verified 11/12/13 07:03 of Breath codeine Allergy Intermediate Itching Verified 11/12/13 07:03 Csedrpk-Uca-Egy Reductase Allergy Unknown Verified 02/20/16 13:06 Inhibitor ED Review of Systems ROS: Stated complaint: CHF Other details as noted in HPI Comment: All other systems reviewed and negative Respiratory: cough, orthopnea, shortness of breath, SOB with exertion, SOB at rest Gastrointestinal: denies: nausea, vomiting ED Past Medical Hx - Past Medical History Previous Medical History?: Yes Hx Hypertension: Yes Hx Congestive Heart Failure: Yes Hx Diabetes: Yes Hx Arthritis: Yes Hx Kidney Stones: Yes Hx Asthma: No Hx COPD: No Hx HIV: No Additional medical history: Lithotripsy, stent, urosepsis, kidney stones. dvt - Surgical History Past Surgical History?: Yes Hx Open Heart Surgery: Yes (2011) Hx Cholecystectomy: Yes (1975) Additional Surgical History: stents in legs - Social History Smoking Status: Current Some Day Smoker Substance Use Type: Alcohol - Medications Home Medications: Home Medications Medication Instructions Recorded Confirmed Last Taken Type Carvedilol [Coreg] 25 mg PO BID 11/12/13 12/23/17 03/28/17 History 25 mg Gabapentin 600 mg PO TID 11/12/13 12/23/17 03/28/17 History 300 mg Insulin Lispro Protamin/Lispro 20 units SQ TID 11/12/13 12/23/17 03/28/17 History [HumaLOG Mix 50-50 Kwikpen] 20 units Isosorbide Mononitrate [Isosorbide 120 mg PO DAILY 11/12/13 12/23/17 03/28/17 History Mononitrate ER (IMDUR)] 60 mg traMADol [Ultram 50 MG tab] 50 mg PO Q6HR PRN #20 tablet 03/28/15 12/23/17 03/28/17 Rx Furosemide [Lasix TAB] 20 mg PO QDAY 03/29/17 12/23/17 03/28/17 History Gemfibrozil [Lopid] 600 mg PO BID 03/29/17 12/23/17 03/28/17 History amLODIPine 5 mg PO DAILY 03/29/17 12/23/17 03/28/17 History Insulin Glargine,Hum.rec.anlog 60 units SUB-Q HS 12/23/17 12/23/17 Unknown History [Nomanagljv [place] U-100] Varenicline Tartrate [Chantix] 1 mg PO BID 12/23/17 12/23/17 Unknown History metFORMIN [Glucophage] 500 mg PO BID 12/23/17 12/23/17 Unknown History Ondansetron [Zofran Odt] 4 mg PO Q8HR #30 tab.rapdis 12/24/17 Unknown Rx ED Physical Exam - General Limitations: No Limitations General appearance: alert, in no apparent distress - Head Head exam: Present: atraumatic, normocephalic - Eye Eye exam: Present: normal appearance, PERRL, EOMI - Respiratory Respiratory exam: Present: decreased breath sounds - Cardiovascular Cardiovascular Exam: Present: regular rate, normal rhythm, JVD (bilateral moderate) - GI/Abdominal GI/Abdominal exam: Present: soft - Extremities Exam Extremities exam: Present: pedal edema (++) - Back Exam Back exam: Present: normal inspection - Neurological Exam Neurological exam: Present: alert, oriented X3, CN II-XII intact ED Course Vital Signs 03/31/19 03/31/19 03/31/19 15:28 16:07 16:15 Temperature 97.8 F Pulse Rate 59 L 56 L Respiratory 22 19 Rate Blood Pressure 158/68 Blood Pressure 165/68 [Left] O2 Sat by Pulse 96 98 95 Oximetry 03/31/19 03/31/19 03/31/19 16:31 16:45 17:00 Temperature Pulse Rate 57 L 55 L 56 L Respiratory 12 20 16 Rate Blood Pressure 158/68 154/68 154/68 Blood Pressure [Left] O2 Sat by Pulse 98 95 97 Oximetry 03/31/19 03/31/19 03/31/19 17:15 17:31 18:01 Temperature Pulse Rate 63 58 L 58 L Respiratory 17 19 12 Rate Blood Pressure 168/75 167/72 198/85 Blood Pressure [Left] O2 Sat by Pulse 95 94 93 Oximetry 03/31/19 03/31/19 18:31 18:58 Temperature Pulse Rate 58 L 90 Respiratory 17 18 Rate Blood Pressure 198/85 Blood Pressure 130/71 [Left] O2 Sat by Pulse 99 Oximetry ED Medical Decision Making - Lab Data Result diagrams: 03/31/19 15:41 03/31/19 15:41 Critical care attestation.: If time is entered above; I have spent that time in minutes in the direct care of this critically ill patient, excluding procedure time. ED Disposition Clinical Impression: CHF exacerbation Qualifiers: Heart failure type: systolic Qualified Code(s): I50.23 - Acute on chronic systolic (congestive) heart failure Disposition: - TO HOME OR SELFCARE Is pt being admited?: No Does the pt Need Aspirin: No Condition: Stable Referrals: ZEKE GUAMAN MD [Primary Care Provider] - 3-5 Days
--- NOTE | 2019-03-31 17:33 | XRay Report ---
CHEST 1 VIEW 4:43 PM INDICATION / CLINICAL INFORMATION: Shortness of breath. COMPARISON: 12/23/2017. FINDINGS: SUPPORT DEVICES: None. HEART / MEDIASTINUM: Median sternotomy with multiple fractured sternal wires. Borderline heart size. Normal pulmonary vasculature LUNGS / PLEURA: No significant pulmonary or pleural abnormality. No pneumothorax. ADDITIONAL FINDINGS: No significant additional findings. IMPRESSION: No acute findings. Signer Name: Dion Goldberg MD Signed: 03/31/2019 5:29 PM Workstation Name: [id number]
[2019-03-31 18:59] VITALS: BP 130/71
== END 2019-03-31 18:50 | disposition home or self-care (01) ==
LOC: ED 15:09
DX: I11.0 Hypertensive heart disease with heart failure (principal); I50.9 Heart failure, unspecified; E11.9 Type 2 diabetes mellitus without complications; M19.90 Unspecified osteoarthritis, unspecified site; F17.200 Nicotine dependence, unspecified, uncomplicated; Z95.1 Presence of aortocoronary bypass graft; Z90.49 Acquired absence of other specified parts of digestive tract; Z87.442 Personal history of urinary calculi; Z98.890 Other specified postprocedural states; Z88.5 Allergy status to narcotic agent; Z88.8 Allergy status to other drugs, medicaments and biological substances; Z79.4 Long term (current) use of insulin; Z79.899 Other long term (current) drug therapy
CPT/HCPCS: 36415; 71045; 80053; 82140; 82550; 82553; 83880; 84484; 85025; 85610; 85730; 93005; 93010; 96374; 99284; J1940

== ENCOUNTER 2019-10-05 16:10 | Emergency (ER) | payer MEDICARE ==
--- NOTE | 2019-10-05 17:23 | XRay Report ---
Right rib series 4 views Indication: chest pain, dyspnea Findings: There are fractures of the right seventh, eighth, and ninth ribs and possible nondisplaced fracture o f the right 10th rib. No pneumothorax is seen. Changes of prior median sternotomy are noted. Most of the sternal wires are fractured. This appears u nchanged Signer Name: Wilson Elizondo MD Signed: 10/05/2019 5:18 PM Workstation Name: [id number]
[2019-10-05] MEDS ORDERED: MORPHINE 4 MG/1 ML INJ IV ONE ×2 (18:07→20:51)
[2019-10-05] MEDS ORDERED: ONDANSETRON 4 MG/2 ML INJ IV ONE (18:08)
--- NOTE | 2019-10-05 18:11 | Emergency Department Report ---
HPI - General Chief Complaint: Dyspnea/Respdistress Time Seen by Provider: 10/05/19 18:02 - HPI HPI: 64-year-old female presents to the emergency department from home with complaint of some midsternal and right-sided chest pain, some back pain, and shortness of breath after slipping in her bathroom and falling onto the bathtub. She denies any fever, nausea, vomiting, coughing. She has a past medical history hypertension, peripheral arterial disease, diabetes, coronary artery disease with previous CABG, CHF. She has not taken anything for her symptoms prior to presentation today. She denies hitting her head or any loss of consciousness. She was driven in to be seen by her sister. ED Past Medical Hx - Past Medical History Hx Hypertension: Yes Hx Congestive Heart Failure: Yes Hx Diabetes: Yes Hx Arthritis: Yes Hx Kidney Stones: Yes Hx Asthma: No Hx COPD: No Hx HIV: No Additional medical history: Lithotripsy, stent, urosepsis, kidney stones. dvt - Surgical History Past Surgical History?: Yes Hx Open Heart Surgery: Yes (2011) Hx Cholecystectomy: Yes (1975) Additional Surgical History: stents in legs - Social History Smoking Status: Current Every Day Smoker Substance Use Type: Alcohol - Medications Home Medications: Home Medications Medication Instructions Recorded Confirmed Last Taken Type Gabapentin 600 mg PO TID 11/12/13 12/23/17 03/28/17 History 300 mg Insulin Lispro Protamin/Lispro 20 units SQ TID 11/12/13 12/23/17 03/28/17 History [HumaLOG Mix 50-50 Kwikpen] 20 units Isosorbide Mononitrate [Isosorbide 120 mg PO DAILY 11/12/13 12/23/17 03/28/17 History Mononitrate ER (IMDUR)] 60 mg carvediloL [Coreg] 25 mg PO BID 11/12/13 12/23/17 03/28/17 History 25 mg traMADoL [Ultram 50 MG tab] 50 mg PO Q6HR PRN #20 tablet 03/28/15 12/23/17 03/28/17 Rx Furosemide [Lasix TAB] 20 mg PO QDAY 03/29/17 12/23/17 03/28/17 History Gemfibrozil [Lopid] 600 mg PO BID 03/29/17 12/23/17 03/28/17 History amLODIPine 5 mg PO DAILY 03/29/17 12/23/17 03/28/17 History Insulin Glargine,Hum.rec.anlog 60 units SUB-Q HS 12/23/17 12/23/17 Unknown History [Basaglar Sorayaikpen U-100] Varenicline Tartrate [Chantix] 1 mg PO BID 12/23/17 12/23/17 Unknown History metFORMIN [Glucophage] 500 mg PO BID 12/23/17 12/23/17 Unknown History Ondansetron [Zofran Odt] 4 mg PO Q8HR #30 tab.rapdis 12/24/17 Unknown Rx ED Review of Systems ROS: Stated complaint: FALL, CHEST PAIN Other details as noted in HPI Comment: All other systems reviewed and negative Constitutional: denies: chills, fever Eyes: denies: eye pain, vision change ENT: denies: ear pain, throat pain Respiratory: shortness of breath. denies: cough Cardiovascular: chest pain. denies: palpitations Gastrointestinal: denies: abdominal pain, vomiting Genitourinary: denies: dysuria, discharge Musculoskeletal: back pain. denies: joint swelling Skin: denies: rash, lesions Neurological: denies: headache, weakness Physical Exam - Physical Exam Physical Exam: GENERAL: The patient is well-developed well-nourished. HENT: Normocephalic. Atraumatic. Patient has moist mucous membranes. EYES: Extraocular motions are intact. Pupils equal reactive to light bilaterally. NECK: Supple. Trachea is midline. No midline tenderness to palpation, step-off or deformity. CHEST/LUNGS: Clear to auscultation. There is no respiratory distress noted. There is reproducible tenderness to palpation to the right lateral rib cage. HEART/CARDIOVASCULAR: Regular. There is no tachycardia. There is no murmur. ABDOMEN: Abdomen is soft, nontender. Patient has normal bowel sounds. There is no abdominal distention. SKIN: Skin is warm and dry. NEURO: The patient is awake, alert, and oriented. The patient is cooperative. The patient has no focal neurologic deficits. Normal speech. MUSCULOSKELETAL: There is no tenderness or deformity. There is no limitation range of motion. There is no evidence of acute injury. BACK: There is both midline and right paraspinal lower thoracic and lumbar tenderness to palpation. ED Course - Consultations Consultation #1: 10/05/19 20:06 This patient has 5 lateral and 3 posterior mildly displaced rib fractures, as well as 2 transverse process fractures. Given the multiple rib fractures, the patient will need close monitoring and respiratory therapy. The patient will be transferred to [facility] emergency department and has been accepted by the trauma attending, Dr. Yousif. ED Medical Decision Making - Lab Data Result diagrams: 10/05/19 19:01 10/05/19 19:01 - EKG Data -: EKG Interpreted by Ms EKG shows normal: sinus rhythm, axis, intervals, QRS complexes (Q waves to the septal and anterior leads), ST-T waves Rate: bradycardia (57 bpm) - EKG Data When compared to previous EKG there are: no significant change Interpretation: unchanged when compared t (03/31/19) - Radiology Data Radiology results: report reviewed Right rib series 4 views Indication: chest pain, dyspnea Findings: There are fractures of the right seventh, eighth, and ninth ribs and possible nondisplaced fracture of the right 10th rib. No pneumothorax is seen. Changes of prior median sternotomy are noted. Most of the sternal wires are fractured. This appears unchanged CT lumbar spine wo con INDICATION / CLINICAL INFORMATION: 64 years Female; Trauma. TECHNIQUE: Axial CT images of the lumbar spine were obtained after administration of intrathecal contrast. Sagittal and coronal reformatted images were produced. All CT scans at this location are performed using CT dose reduct ion for ALARA by means of automated exposure control. COMPARISON: None available. FINDINGS: POST-SURGICAL CHANGES: None. ALIGNMENT: Mild levoscoliosis seen with apex at L3-4. VERTEBRAE: There may be a very small fracture along the most lateral aspect of the transverse process on the right at L1. Similar findings seen on the right at L2. These findings may be chronic in age. Vertebral bodies are otherwise grossly normal in height throughout. Mild to moderate, multilevel facet hypertrophy seen. Most marked findings are at L4-5. INTERVERTEBRAL DISCS: Significant disc space narrowing seen at L3-4. Mild narrowing noted at L4-5. Vacuum phenomenon seen from L2-3 through L4-5. Moderate disc bulge seen at L4-5 results in moderate to high-grade canal narrowing when combined with facet/ligamentum flavum hypertrophy. Mild disc bulge seen at L1-2 and L2-3, as well as L3-4. Moderate to high-grade osseous foraminal narrowing seen on the right at L3-4 from disc disease and spondylosis, combined with facet hypertrophy. There is encroachment upon and flattening the right L3 nerve-this finding appears to be on a chronic basis. Mild to moderate foraminal narrowing suggested at other levels without impingement. PARASPINAL SOFT TISSUES: No significant abnormality. 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 Common iliac vein stents noted. Atherosclerotic disease seen in the aorta and its branches. Prior cholecystectomy noted. Presumed simple cysts associated with superior pole the left kidney, projecting somewhat anteriorly. There is some component of edema in the mesentery, particularly on the right-CT of the abdomen and pelvis might be helpful for further evaluation to exclude underlying injury, if clinically warranted. IMPRESSION: 1. Minimal fracture (s) suggested in the lateral aspect of the transverse process of L1 (and perhaps L2) on the right, as described above. 2. Otherwise, no signs of acute bony trauma to the lumbar spine. 3. Degenerative changes of the lumbar spine as described above. Most marked findings appear to be at L4-5. 4. Subtle component of edema/free fluid seen in the abdomen on the right-CT of the abdomen and pelvis may be helpful in excluding an underlying injury. Please clinically correlate. CT chest wo con INDICATION: Fall, Rib fractures, Sternal Chest pain. TECHNIQUE: All CT scans at this location are performed using CT dose reduction for ALARA by means of automated exposure control. COMPARISON: None available. FINDINGS: Mediastinum, frank and axillae are negative. Lungs are fully expanded. There is mild, chronic appearing interstitial disease but no pneumothorax, pleural fluid or pulmonary contusion. There are minimally displaced fractures of the right sixth through 10th ribs laterally. IMPRESSION: 1. Minimally displaced right rib fractures without complication. CT thoracic spine wo con INDICATION / CLINICAL INFORMATION: 64 years Female; Trauma. TECHNIQUE: Axial CT images of the thoracic spine were obtained. Sagittal and coronal reformatted images were produced. All CT scans at this location are performed using CT dose reduction for ALARA by means of automated exposure control. COMPARISON: None available. FINDINGS: POST-SURGICAL CHANGES: None. ALIGNMENT: There may be minimal scoliosis present. VERTEBRAE: No signs of vertebral body fracture. Vertebral bodies are grossly normal in height throughout. Scattered areas of mild costovertebral and costotransverse h ypertrophy are noted. No significant osseous foraminal narrowing appreciated. INTERVERTEBRAL DISCS: Mild disc disease seen at various levels. No dominant herniation appreciated. Overall, no significant canal stenosis identified. PARASPINAL SOFT TISSUES: No significant abnormality. ADDITIONAL FINDINGS: Vertically oriented, minimally displaced rib fractures suggested at T9 and T10 posterior centrally, and T11 in the region of the neck. Median sternotomy wires noted. There may be a simple cyst associated with the superior pole the left kidney. IMPRESSION: 1. Minimally displaced rib fracture seen on the right from T9 through T11. - Medical Decision Making This patient presents to the emergency department with complaint of right-sided rib pain and some back pain after falling in her bathroom onto the bathtub. Initial chest x-ray with right-sided rib series showed a few lateral rib fractures. CT of the chest without contrast shows bilateral and 3 posterior rib fractures, but no pneumothorax. CT scan of the lumbar spine shows right transverse process fracture of L1 and L2. The patient was given a few different doses of IV analgesia with only some transient relief. Labs have been unremarkable. Vital signs stable thus far. However given the large amount of rib fractures, the patient will need close monitoring and respiratory therapy that we are unable to provide at this facility. The patient has been accepted for transfer to [facility] by the trauma attending. Critical Care Time: No Critical care attestation.: If time is entered above; I have spent that time in minutes in the direct care of this critically ill patient, excluding procedure time. ED Disposition Clinical Impression: Hypertension Qualifiers: Hypertension type: essential hypertension Qualified Code(s): I10 - Essential (p rimary) hypertension Multiple fractures of ribs Qualifiers: Encounter type: initial encounter Fracture type: closed Laterality: right Qualified Code(s): S22.41XA - Multiple fractures of ribs, right side, initial encounter for closed fracture Lumbar transverse process fracture Qualifiers: Encounter type: initial encounter Fracture type: closed Qualified Code(s): S32.009A - Unspecified fracture of unspecified lumbar vertebra, initial encounter for closed fracture Disposition: DC/TX-70 ANOTHER TYPE HLTHCARE Is pt being admited?: No Condition: Fair Time of Disposition: 23:51
--- NOTE | 2019-10-05 19:08 | Cat Scan Report ---
CT chest wo con INDICATION: Fall, Rib fractures, Sternal Chest pain. TECHNIQUE: All CT scans at this location are performed using CT dose reduction for ALARA by means of automated e xposure control. COMPARISON: None available. FINDINGS: Mediastinum, frank and axillae are negative. Lungs are fully expanded. There is mild, chronic appearin g interstitial disease but no pneumothorax, pleural fluid or pulmonary contusion. There are minimally displaced fractures of the right sixth through 10th ribs laterally. IMPRESSION: 1. Minimally displaced right rib fractures without complication. Signer Name: Derick Ty MD Signed: 10/05/2019 7:04 PM Workstation Name: [id number]
[2019-10-05 19:11] LABS: Basophils % (Auto) 0.3 % (0.0-1.8); Eosinophils # (Auto) 0.1 K/mm3 (0.0-0.4); Hematocrit 35.7 % (30.3-42.9); Hemoglobin 12.4 gm/dl (10.1-14.3); Lymphocytes % (Auto) 12.7 % (13.4-35.0); Mean Corpuscular HGB Conc 35 % (30-34); Mean Corpuscular Volume 99 fl (79-97); Monocytes # (Auto) 0.8 K/mm3 (0.0-0.8); Monocytes % (Auto) 9.7 % (0.0-7.3); Platelet Count 115 K/mm3 (140-440); Red Blood Count 3.62 M/mm3 (3.65-5.03); Red Cell Distribution Width 15.4 % (13.2-15.2)
[2019-10-05 19:28] LABS: BUN/Creatinine Ratio 22; Blood Urea Nitrogen 20 mg/dL (7-17); Calcium 8.9 mg/dL (8.4-10.2); Hemolysis Index 14
--- NOTE | 2019-10-05 19:30 | Cat Scan Report ---
CT thoracic spine wo con INDICATION / CLINICAL INFORMATION: 64 years Female; Trauma. TECHNIQUE: Axial CT images of the thoracic spine were obtained. Sagittal and coronal reformatted images were pr oduced. All CT scans at this location are performed using CT dose reduction for ALARA by means of aut omated exposure control. COMPARISON: None available. FINDINGS: POST-SURGICAL CHANGES: None. ALIGNMENT: There may be minimal scoliosis present. VERTEBRAE: No signs of vertebral body fracture. Vertebral bodies are grossly normal in height through out. Scattered areas of mild costovertebral and costotransverse hypertrophy are noted. No significant osse ous foraminal narrowing appreciated. INTERVERTEBRAL DISCS: Mild disc disease seen at various levels. No dominant herniation appreciated. O verall, no significant canal stenosis identified. PARASPINAL SOFT TISSUES: No significant abnormality. ADDITIONAL FINDINGS: Vertically oriented, minimally displaced rib fractures suggested at T9 and T10 p osterior centrally, and T11 in the region of the neck. Median sternotomy wires noted. There may be a simple cyst associated with the superior pole the left kidney. IMPRESSION: 1. Minimally displaced rib fracture seen on the right from T9 through T11. Signer Name: Danny Hanson MD, III Signed: 10/05/2019 7:26 PM Workstation Name: [id number]
--- NOTE | 2019-10-05 19:41 | Cat Scan Report ---
CT lumbar spine wo con INDICATION / CLINICAL INFORMATION: 64 years Female; Trauma. TECHNIQUE: Axial CT images of the lumbar spine were obtained after administration of intrathecal contrast. Sagi ttal and coronal reformatted images were produced. All CT scans at this location are performed using CT dose reduction for ALARA by means of automated exposure control. COMPARISON: None available. FINDINGS: POST-SURGICAL CHANGES: None. ALIGNMENT: Mild levoscoliosis seen with apex at L3-4. VERTEBRAE: There may be a very small fracture along the most lateral aspect of the transverse process on the right at L1. Similar findings seen on the right at L2. These findings may be chronic in age. Vertebral bodies are otherwise grossly normal in height throughout. Mild to moderate, multilevel facet hypertrophy seen. Most marked findings are at L4-5. INTERVERTEBRAL DISCS: Significant disc space narrowing seen at L3-4. Mild narrowing noted at L4-5. Va cuum phenomenon seen from L2-3 through L4-5. Moderate disc bulge seen at L4-5 results in moderate to high-grade canal narrowing when combined with facet/ligamentum flavum hypertrophy. Mild disc bulge seen at L1-2 and L2-3, as well as L3-4. Moderate to high-grade osseous foraminal narr owing seen on the right at L3-4 from disc disease and spondylosis, combined with facet hypertrophy. T here is encroachment upon and flattening the right L3 nerve-this finding appears to be on a chronic b asis. Mild to moderate foraminal narrowing suggested at other levels without impingement. PARASPINAL SOFT TISSUES: No significant abnormality. ADDITIONAL FINDINGS: Borderline anomalous joint formation seen bilaterally between the transverse pro cesses of L5 in the adjacent sacral alar regions. Common iliac vein stents noted. Atherosclerotic disease seen in the aorta and its branches. Prior cholecystectomy noted. Presumed simple cysts associated with superior pole the left kidney, projecting somewhat anteriorly. There is some component of edema in the mesentery, particularly on the right-CT of the abdomen and pe lvis might be helpful for further evaluation to exclude underlying injury, if clinically warranted. IMPRESSION: 1. Minimal fracture (s) suggested in the lateral aspect of the transverse process of L1 (and perhaps L2) on the right, as described above. 2. Otherwise, no signs of acute bony trauma to the lumbar spine. 3. Degenerative changes of the lumbar spine as described above. Most marked findings appear to be at L4-5. 4. Subtle component of edema/free fluid seen in the abdomen on the right-CT of the abdomen and pelvis may be helpful in excluding an underlying injury. Please clinically correlate. Signer Name: Danny Hanson MD, III Signed: 10/05/2019 7:37 PM Workstation Name: [id number]
[2019-10-05 21:38] VITALS: BP 162/74
== END 2019-10-05 22:05 | disposition other institution (70) ==
LOC: ED 16:10
DX: S22.41XA Multiple fractures of ribs, right side, initial encounter for closed fracture (principal); S32.009A Unspecified fracture of unspecified lumbar vertebra, initial encounter for closed fracture; E11.9 Type 2 diabetes mellitus without complications; I11.0 Hypertensive heart disease with heart failure; I50.9 Heart failure, unspecified; K21.9 Gastro-esophageal reflux disease without esophagitis; M19.90 Unspecified osteoarthritis, unspecified site; F17.200 Nicotine dependence, unspecified, uncomplicated; Z90.49 Acquired absence of other specified parts of digestive tract; Z98.890 Other specified postprocedural states; Z79.899 Other long term (current) drug therapy; Z79.4 Long term (current) use of insulin; X58.XXXA Exposure to other specified factors, initial encounter; Y93.89 Activity, other specified; Y92.89 Other specified places as the place of occurrence of the external cause; Y99.8 Other external cause status
CPT/HCPCS: 36415; 71101; 71250; 72128; 72131; 80048; 82550; 84484; 85025; 93005; 93010; 96374; 96375; 96376; 99285; J2270; J2405

== ENCOUNTER 2019-10-11 21:19 | Observation (INO) | payer MEDICARE ==
--- NOTE | 2019-10-11 22:20 | XRay Report ---
CHEST 1 VIEW INDICATION / CLINICAL INFORMATION: weakness. COMPARISON: 10/05/2019 FINDINGS: SUPPORT DEVICES: None. HEART / MEDIASTINUM: Moderately enlarged with evidence of median sternotomy. LUNGS / PLEURA: No significant pulmonary or pleural abnormality. No pneumothorax. ADDITIONAL FINDINGS: No significant additional findings. IMPRESSION: 1. No significant change Signer Name: Daniel Rosales MD Signed: 10/11/2019 10:15 PM Workstation Name: [id number]
--- NOTE | 2019-10-11 22:44 | Cat Scan Report ---
CT HEAD WITHOUT CONTRAST INDICATION / CLINICAL INFORMATION: Altered Mental Status. No Trauma. TECHNIQUE: All CT scans at this location are performed using CT dose reduction for ALARA by means of automated e xposure control. COMPARISON: None available. FINDINGS: HEMORRHAGE: None. EXTRA-AXIAL SPACES: Normal in size and morphology for the patient's age. VENTRICULAR SYSTEM: Normal in size and morphology for the patient's age. CEREBRAL PARENCHYMA: Scattered bilateral white matter hypodensities likely related to microangiopathy . No acute territorial infarct. MIDLINE SHIFT OR HERNIATION: None. CEREBELLUM / BRAINSTEM: No significant abnormality. ORBITS: Normal as visualized. SOFT TISSUES of HEAD: No significant abnormality. CALVARIUM: No significant abnormality. PARANASAL SINUSES / MASTOID AIR CELLS: Normal as visualized. ADDITIONAL FINDINGS: None. IMPRESSION: 1. No acute intracranial abnormality. Signer Name: Catarino Doran MD Signed: 10/11/2019 10:40 PM Workstation Name: [id number]
--- NOTE | 2019-10-11 23:23 | Emergency Department Report ---
- General Chief complaint: Weakness Stated complaint: WEAKNESS/LOW BLOOD SUGAR Time Seen by Provider: 10/11/19 21:40 Source: EMS Mode of arrival: Ambulatory Limitations: Altered Mental Status - History of Present Illness Initial comments: 64-year-old female with history of diabetes, CHF, CAD, hypertension, liver cirrhosis presents the ED with generalized weakness x1 day. Sister reports she was concerned because patient seem to be clammy, tired, and having jerking movements in her arms. Patient was discharged from [facility] 3 days ago following admission for multiple rib fractures after getting dizzy and falling down. Sister states patient has had some vomiting and diarrhea on yesterday. Denies any fever, cough of breath. Patient denies headache, chest pain, abdominal aaron n. Patient is somewhat slow to respond. EMS reports her glucose was 62 on arrival, she was given oral glucose and Accu-Chek increased to 79. MD Complaint: generalized weakness, lack of energy -: days(s) (1) Location: generalized Severity: moderate Consistency: constant Improves with: none Worsens with: none Associated Symptoms: nausea/vomiting. denies: chest pain, fever/chills, headaches, shortness of breath - Related Data Home Medications Medication Instructions Recorded Confirmed Last Taken Gabapentin 600 mg PO TID 11/12/13 12/23/17 03/28/17 300 mg Insulin Lispro Protamin/Lispro 20 units SQ TID 11/12/13 12/23/17 03/28/17 [HumaLOG Mix 50-50 Kwikpen] 20 units Isosorbide Mononitrate [Isosorbide 120 mg PO DAILY 11/12/13 12/23/17 03/28/17 Mononitrate ER (IMDUR)] 60 mg carvediloL [Coreg] 25 mg PO BID 11/12/13 12/23/17 03/28/17 25 mg Furosemide [Lasix TAB] 20 mg PO QDAY 03/29/17 12/23/17 03/28/17 Gemfibrozil [Lopid] 600 mg PO BID 03/29/17 12/23/17 03/28/17 amLODIPine 5 mg PO DAILY 03/29/17 12/23/17 03/28/17 Insulin Glargine,Hum.rec.anlog 60 units SUB-Q HS 12/23/17 12/23/17 Unknown [Basaglar Kwikpen U-100] Varenicline Tartrate [Chantix] 1 mg PO BID 12/23/17 12/23/17 Unknown metFORMIN [Glucophage] 500 mg PO BID 12/23/17 12/23/17 Unknown Previous Rx's Medication Instructions Recorded Last Taken Type traMADoL [Ultram 50 MG tab] 50 mg PO Q6HR PRN #20 tablet 03/28/15 03/28/17 Rx Ondansetron [Zofran Odt] 4 mg PO Q8HR #30 tab.rapdis 12/24/17 Unknown Rx Allergies Allergy/AdvReac Type Severity Reaction Status Date / Time lisinopril Allergy Severe Shortness Verified 10/05/19 16:14 of Breath codeine Allergy Intermediate Itching Verified 10/05/19 16:14 Cmnmvxc-Opl-Nnu Reductase Allergy Unknown Verified 10/05/19 16:14 Inhibitor ED Review of Systems ROS: Stated complaint: WEAKNESS/LOW BLOOD SUGAR Other details as noted in HPI Comment: All other systems reviewed and negative Constitutional: denies: fever Respiratory: denies: cough, shortness of breath Cardiovascular: denies: chest pain Gastrointestinal: nausea, vomiting, diarrhea. denies: abdominal pain Neurological: denies: headache ED Past Medical Hx - Past Medical History Previous Medical History?: Yes Hx Hypertension: Yes Hx Congestive Heart Failure: Yes Hx Diabetes: Yes Hx Arthritis: Yes Hx Kidney Stones: Yes Hx Asthma: No Hx COPD: No Hx HIV: No Additional medical history: Lithotripsy, stent, urosepsis, kidney stones. dvt - Surgical History Hx Open Heart Surgery: Yes (2011) Hx Cholecystectomy: Yes (1975) Additional Surgical History: stents in legs - Social History Smoking Status: Current Every Day Smoker Substance Use Type: None - Medications Home Medications: Home Medications Medication Instructions Recorded Confirmed Last Taken Type Gabapentin 600 mg PO TID 11/12/13 12/23/17 03/28/17 History 300 mg Insulin Lispro Protamin/Lispro 20 units SQ TID 11/12/13 12/23/17 03/28/17 History [HumaLOG Mix 50-50 Kwikpen] 20 units Isosorbide Mononitrate [Isosorbide 120 mg PO DAILY 11/12/13 12/23/17 03/28/17 History Mononitrate ER (IMDUR)] 60 mg carvediloL [Coreg] 25 mg PO BID 11/12/13 12/23/17 03/28/17 History 25 mg traMADoL [Ultram 50 MG tab] 50 mg PO Q6HR PRN #20 tablet 03/28/15 12/23/17 03/28/17 Rx Furosemide [Lasix TAB] 20 mg PO QDAY 03/29/17 12/23/17 03/28/17 History Gemfibrozil [Lopid] 600 mg PO BID 03/29/17 12/23/17 03/28/17 History amLODIPine 5 mg PO DAILY 03/29/17 12/23/17 03/28/17 History Insulin Glargine,Hum.rec.anlog 60 units SUB-Q HS 12/23/17 12/23/17 Unknown History [Basaglar Kwikpen U-100] Varenicline Tartrate [Chantix] 1 mg PO BID 12/23/17 12/23/17 Unknown History metFORMIN [Glucophage] 500 mg PO BID 12/23/17 12/23/17 Unknown History Ondansetron [Zofran Odt] 4 mg PO Q8HR #30 tab.rapdis 12/24/17 Unknown Rx ED Physical Exam - General Limitations: Altered Mental Status General appearance: alert, in no apparent distress - Head Head exam: Present: atraumatic - Eye Eye exam: Present: normal appearance, PERRL, EOMI - ENT ENT exam: Present: mucous membranes moist - Neck Neck exam: Present: normal inspection - Respiratory Respiratory exam: Present: normal lung sounds bilaterally. Absent: respiratory distress - Cardiovascular Cardiovascular Exam: Present: regular rate, normal rhythm - GI/Abdominal GI/Abdominal exam: Present: soft. Absent: distended, tenderness - Extremities Exam Extremities exam: Present: normal inspection - Neurological Exam Neurological exam: Present: alert, oriented X3, CN II-XII intact. Absent: motor sensory deficit - Psychiatric Psychiatric exam: Present: flat affect - Skin Skin exam: Present: warm, dry, intact, normal color ED Course Vital Signs 10/11/19 10/11/19 10/11/19 21:26 21:27 21:28 Temperature 98.1 F Pulse Rate 56 L Respiratory 20 12 Rate Blood Pressure 121/38 121/51 O2 Sat by Pulse 99 98 98 Oximetry 10/11/19 10/11/19 10/11/19 21:31 21:45 22:01 Temperature Pulse Rate 54 L 65 Respiratory 10 L 13 Rate Blood Pressure 121/51 121/51 121/48 O2 Sat by Pulse 98 99 Oximetry 10/11/19 22:31 Temperature Pulse Rate 54 L Respiratory 8 L Rate Blood Pressure O2 Sat by Pulse 99 Oximetry ED Medical Decision Making - Lab Data Result diagrams: 10/11/19 23:16 10/11/19 23:16 - Radiology Data Radiology results: report reviewed, image reviewed Critical care attestation.: If time is entered above; I have spent that time in minutes in the direct care of this critically ill patient, excluding procedure time. ED Disposition Clinical Impression: Acute hepatic encephalopathy, UTI (urinary tract infection) Disposition: 09 OP ADMIT IP TO THIS HOSP Is pt being admited?: Yes Condition: Stable Referrals: ZEKE GUAMAN MD [Referring] - 3-5 Days Time of Disposition: 02:09
[2019-10-11 23:54] LABS: INR 1.28 (0.87-1.13)
[2019-10-11 23:55] LABS: Partial Thromboplastin Time 33.2 Sec. (24.2-36.6)
[2019-10-12 00:03] LABS: Albumin 2.5 g/dL (3.9-5); Bilirubin,Direct 0.4 mg/dL (0-0.2); Calcium 8.4 mg/dL (8.4-10.2); Hemoglobin 11.9 gm/dl (10.1-14.3); Mean Corpuscular HGB Conc 33 % (30-34); Mean Corpuscular Volume 105 fl (79-97); Platelet Count 105 K/mm3 (140-440); Red Blood Count 3.44 M/mm3 (3.65-5.03); Red Cell Distribution Width 16.4 % (13.2-15.2)
[2019-10-12] MEDS ORDERED: NALOXONE 0.4 MG/1 ML INJ IV ONE (00:18)
[2019-10-12 00:36] LABS: Bacteria,Urine 1+ /HPF (Negative); Bilirubin,Urine NEG (Negative); Blood,Urine MOD (Negative); Color,Urine Yellow (Yellow); Protein,Urine <15 mg/dL mg/dL (Negative); Urobilinogen,Urine < 2.0 mg/dL (<2.0)
[2019-10-12 00:37] LABS: WBC,Urine > 182.0 /HPF (0.0-6.0)
[2019-10-12] MEDS ORDERED: cefTRIAXone/NS 1 GM/50 ML 1 GM/50 ML BAG IV ONE (00:44)
[2019-10-12] MEDS ORDERED: LACTULOSE 20 GM/30 ML ORAL LIQD PO ONE (02:02)
--- NOTE | 2019-10-12 03:03 | History and Physical Report ---
History of Present Illness History of present illness: 64-year-old woman with a history of hypertension, diabetes, coronary artery disease, CHF, cirrhosis was brought to the emergency room for evaluation. History is per the emergency room physician who said that the patient's sister stated the patient has been having generalized weakness, decreased ADL. She was discharged from [place] 3 days ago for rib fracture. Patient is lethargic, review of system is unobtainable. Patient will be admitted for hepatic encephalopathy, urinary tract infection PAST MEDICAL HISTORY: hypertension, diabetes, coronary artery disease, CHF, cirrhosis PAST SURGICAL HISTORY: Unknown SOCIAL HISTORY: Unknown FAMILY HISTORY: Unknown PUI?: No Medications and Allergies Allergies Allergy/AdvReac Type Severity Reaction Status Date / Time lisinopril Allergy Severe Shortness Verified 10/05/19 16:14 of Breath codeine Allergy Intermediate Itching Verified 10/05/19 16:14 Gxodklq-Dvi-Bkq Reductase Allergy Unknown Verified 10/05/19 16:14 Inhibitor Home Medications Medication Instructions Recorded Confirmed Last Taken Type Gabapentin 600 mg PO TID 11/12/13 12/23/17 03/28/17 History 300 mg Insulin Lispro Protamin/Lispro 20 units SQ TID 11/12/13 12/23/17 03/28/17 History [HumaLOG Mix 50-50 Kwikpen] 20 units Isosorbide Mononitrate [Isosorbide 120 mg PO DAILY 11/12/13 12/23/17 03/28/17 History Mononitrate ER (IMDUR)] 60 mg carvediloL [Coreg] 25 mg PO BID 11/12/13 12/23/17 03/28/17 History 25 mg traMADoL [Ultram 50 MG tab] 50 mg PO Q6HR PRN #20 tablet 03/28/15 12/23/17 03/28/17 Rx Furosemide [Lasix TAB] 20 mg PO QDAY 03/29/17 12/23/17 03/28/17 History Gemfibrozil [Lopid] 600 mg PO BID 03/29/17 12/23/17 03/28/17 History amLODIPine 5 mg PO DAILY 03/29/17 12/23/17 03/28/17 History Insulin Glargine,Hum.rec.anlog 60 units SUB-Q HS 12/23/17 12/23/17 Unknown History [Basaglar Kwikpen U-100] Varenicline Tartrate [Chantix] 1 mg PO BID 12/23/17 12/23/17 Unknown History metFORMIN [Glucophage] 500 mg PO BID 12/23/17 12/23/17 Unknown History Ondansetron [Zofran Odt] 4 mg PO Q8HR #30 tab.rapdis 12/24/17 Unknown Rx Exam - Physical Exam Narrative exam: Gen. appearance: Patient lying in bed, no apparent distress HEENT: Normocephalic, atraumatic, pupils equally round and reactive to light, extraocular movement intact, and no sclericterus,. No JVD or thyromegaly or nodule,neck supple, no carotid bruit ,mucous membranes moist, no exudate or erythema Heart: S1, S2, regular rate and rhythm Lungs: Clear bilaterally, breathing comfortable Abdomen: Positive bowel sounds, nontender, nondistended, no organomegaly Extremity: no edema, cyanosis, clubbing Skin: No rash, nodules, warm, dry Neuro: lethargic, arousable - Constitutional Vitals: Temp Pulse Resp BP Pulse Ox 98.1 F 54 L 8 L 121/48 99 10/11/19 21:28 10/11/19 22:31 10/11/19 22:31 10/11/19 22:01 10/11/19 22:31 Results - Labs CBC & Chem 7: 10/11/19 23:16 10/11/19 23:16 Labs: Abnormal lab results 10/11/19 10/11/19 10/11/19 Range/Units 21:47 23:16 23:16 RBC 3.44 L (3.65-5.03) M/mm3 MCV 105 H (79-97) fl MCH 35 H (28-32) pg RDW 16.4 H (13.2-15.2) % Plt Count 105 L (140-440) K/mm3 PT 16.2 H (12.2-14.9) Sec. INR 1.28 H (0.87-1.13) Chloride (98-107) mmol/L BUN (7-17) mg/dL Direct Bilirubin (0-0.2) mg/dL AST (5-40) units/L Alkaline Phosphatase (35-129) units/L Ammonia (25-60) umol/L Albumin (3.9-5) g/dL Urine WBC (Auto) > 182.0 H (0.0-6.0) /HPF 10/11/19 10/11/19 Range/Units 23:16 23:55 RBC (3.65-5.03) M/mm3 MCV (79-97) fl MCH (28-32) pg RDW (13.2-15.2) % Plt Count (140-440) K/mm3 PT (12.2-14.9) Sec. INR (0.87-1.13) Chloride 110.8 H (98-107) mmol/L BUN 28 H (7-17) mg/dL Direct Bilirubin 0.4 H (0-0.2) mg/dL AST 86 H (5-40) units/L Alkaline Phosphatase 212 H (35-129) units/L Ammonia 349.0 H (25-60) umol/L Albumin 2.5 L (3.9-5) g/dL Urine WBC (Auto) (0.0-6.0) /HPF - Imaging and Cardiology EKG: image reviewed Chest x-ray: report reviewed CT Scan - head: report reviewed Assessment and Plan Assessment Hepatic encephalopathy Continue lactulose, monitor ammonia level Urinary tract infection Start IV Rocephin, follow cultures Hypertension Continue outpatient medications Diabetes Check fingersticks, hold sliding scale until she starts eating Coronary artery disease/CHF, stable Thrombocytopenia DVT prophylaxis
[2019-10-12] MEDS ORDERED: ACETAMINOPHEN 325 MG TAB PO PRN (03:47)
[2019-10-12] MEDS ORDERED: ONDANSETRON 4 MG/2 ML INJ IV PRN (03:47)
[2019-10-12] MEDS ORDERED: DEXTROSE 50% IN WATER (25GM) 50 ML SYRINGE IV PRN (03:53)
--- NOTE | 2019-10-12 08:40 | Progress Note ---
Assessment and Plan Assessment and plan: Patient is a 64-year-old woman with a history of hypertension, diabetes, coronary artery disease, CHF, cirrhosis was brought to the emergency room for evaluation. History is per the emergency room physician who said that the patient's sister stated the patient has been having generalized weakness, decre ased ADL. She was discharged from [place] 3 days ago for rib fracture. Patient is lethargic, review of system is unobtainable. Patient will be admitted for hepatic encephalopathy, urinary tract infection Hepatic encephalopathy: Continue lactulose, monitor ammonia level Urinary tract infection: Start IV Rocephin, follow cultures Hypertension: Continue outpatient medications Diabetes melitus type 2: Check fingersticks, hold sliding scale until she starts eating Coronary artery disease/CHF, stable Thrombocytopenia most likely chronic from cirrhosis: monitor cbc closely DVT prophylaxis: scd only due to low plt Morbid Obesity, bmi 41.5: Ls modifications H/o Cirrhosis Coagulopathy: consulted GI 10/12/19: Admitted this morning with Ammonia level of 349. Treat with Lactulose, ordered daily Ammonia levels, consulted GI, as she is also Coagulopathic History Interval history: Patient was seen and examined. Follow-up on current diagnosis of AMS. Overnight uneventful as no events directly reported to me. Patient is confused, Imaging, nursing note, chart, labs and old chart reviewed. Discussed with patient. PUI?: No Hospitalist Physical - Physical exam Narrative exam: Gen: WDWN, bmi 41.5 obesity, NAD, Awake, Alert, oriented x 2, confused to location HEENT: NCAT, EOMI, PERRL, OP Clear Neck: supple, no adenopathy, no thyromegaly, no JVD CVS/Heart: bradycardia, normal S1S2, pulses present bilaterally Chest/Lungs: diminished bs bilateral, Symmetrical chest expansion, good air entry bilaterally GI/Abdomen: soft, NT +distension, good bowel sounds, no guarding or rebound /Bladder: no suprapubic tenderness, no CVA or paraspinal tenderness Extermity/Skin: ble pitting edema MSK: FROM x 4 Neuro: CN 2-12 grossly intact, no new focal deficits Psych: calm - Constitutional Vitals: Temp Pulse Resp BP Pulse Ox 98.1 F 56 L 16 161/59 96 10/11/19 21:28 10/12/19 07:57 10/12/19 07:57 10/12/19 07:57 10/12/19 07:57 Results - Labs CBC & Chem 7: 10/11/19 23:16 10/11/19 23:16 Labs: Laboratory Last Values WBC 6.1 K/mm3 (4.5-11.0) 10/11/19 23:16 RBC 3.44 M/mm3 (3.65-5.03) L 10/11/19 23:16 Hgb 11.9 gm/dl (10.1-14.3) 10/11/19 23:16 Hct 36.0 % (30.3-42.9) 10/11/19 23:16 MCV 105 fl (79-97) H 10/11/19 23:16 MCH 35 pg (28-32) H 10/11/19 23:16 MCHC 33 % (30-34) 10/11/19 23:16 RDW 16.4 % (13.2-15.2) H 10/11/19 23:16 Plt Count 105 K/mm3 (140-440) L 10/11/19 23:16 Lymph % (Auto) Division Toll Wire Chief 10/11/19 23:16 [place] % (Auto) Division Toll Wire Chief 10/11/19 23:16 Eos % (Auto) Division Toll Wire Chief 10/11/19 23:16 Baso % (Auto) Division Toll Wire Chief 10/11/19 23:16 Lymph # Division Toll Wire Chief 10/11/19 23:16 [place] # Division Toll Wire Chief 10/11/19 23:16 Eos # Division Toll Wire Chief 10/11/19 23:16 Baso # Division Toll Wire Chief 10/11/19 23:16 Seg Neutrophils % Division Toll Wire Chief 10/11/19 23:16 Seg Neutrophils # Division Toll Wire Chief 10/11/19 23:16 PT 16.2 Sec. (12.2-14.9) H 10/11/19 23:16 INR 1.28 (0.87-1.13) H 10/11/19 23:16 APTT 33.2 Sec. (24.2-36.6) 10/11/19 23:16 Sodium 143 mmol/L (137-145) 10/11/19 23:16 Potassium 3.7 mmol/L (3.6-5.0) 10/11/19 23:16 Chloride 110.8 mmol/L (98-107) H 10/11/19 23:16 Carbon Dioxide 22 mmol/L (22-30) 10/11/19 23:16 Anion Gap 14 mmol/L 10/11/19 23:16 BUN 28 mg/dL (7-17) H 10/11/19 23:16 Creatinine 1.2 mg/dL (0.7-1.2) 10/11/19 23:16 Estimated GFR 45 ml/min 10/11/19 23:16 BUN/Creatinine Ratio 23 % 10/11/19 23:16 Glucose 94 mg/dL (65-100) 10/11/19 23:16 POC Glucose 74 (70-105) 10/11/19 21:44 Calcium 8.4 mg/dL (8.4-10.2) 10/11/19 23:16 Total Bilirubin 0.80 mg/dL (0.1-1.2) 10/11/19 23:16 Direct Bilirubin 0.4 mg/dL (0-0.2) H 10/11/19 23:16 Indirect Bilirubin 0.4 mg/dL 10/11/19 23:16 AST 86 units/L (5-40) H 10/11/19 23:16 ALT 42 units/L (7-56) 10/11/19 23:16 Alkaline Phosphatase 212 units/L (35-129) H 10/11/19 23:16 Ammonia 349.0 umol/L (25-60) H 10/11/19 23:55 Troponin T 0.014 ng/mL (0.00-0.029) 10/11/19 23:16 Total Protein 6.7 g/dL (6.3-8.2) 10/11/19 23:16 Albumin 2.5 g/dL (3.9-5) L 10/11/19 23:16 Albumin/Globulin Ratio 0.6 % 10/11/19 23:16 Lipase 22 units/L (13-60) 10/11/19 23:16 Urine Color Yellow (Yellow) 10/11/19 21:47 Urine Turbidity Slightly-cloudy (Clear) 10/11/19 21:47 Urine pH 6.0 (5.0-7.0) 10/11/19 21:47 Ur Specific [place] 1.009 (1.003-1.030) 10/11/19 21:47 Urine Protein <15 mg/dl mg/dL (Negative) 10/11/19 21:47 Urine Glucose (UA) Neg mg/dL (Negative) 10/11/19 21:47 Urine Ketones Neg mg/dL (Negative) 10/11/19 21:47 Urine Blood Mod (Negative) 10/11/19 21:47 Urine Nitrite Pos (Negative) 10/11/19 21:47 Urine Bilirubin Neg (Negative) 10/11/19 21:47 Urine Urobilinogen < 2.0 mg/dL (<2.0) 10/11/19 21:47 Ur Leukocyte Esterase Lg (Negative) 10/11/19 21:47 Urine WBC (Auto) > 182.0 /HPF (0.0-6.0) H 10/11/19 21:47 Urine RBC (Auto) 19.0 /HPF (0.0-6.0) 10/11/19 21:47 U Epithel Cells (Auto) < 1.0 /HPF (0-13.0) 10/11/19 21:47 Urine Bacteria (Auto) 1+ /HPF (Negative) 10/11/19 21:47 Urine Yeast (Budding) 1+ /HPF 10/11/19 21:47 Reyes/IV: IV Catheter Type [Left Wrist] INT / Saline Lock Active Medications - Current Medications Current Medications: Generic Name Dose Route Start Last Admin Trade Name Freq PRN Reason Stop Dose Admin Acetaminophen 650 mg 10/12/19 03:47 Tylenol PO Q4H PRN Pain MILD(1-3)/Fever >100.5/LOCKETT Dextrose 50 ml 10/12/19 03:53 D50w (25gm) Syringe IV Q30MIN PRN Hypoglycemia Protocol Ceftriaxone Sodium 1 gm in 50 mls @ 100 mls/hr 10/12/19 22:00 Rocephin/Ns 1 Gm/50 Ml IV Q24HR@2200 BRIDGER Protocol Lactulose 20 gm 10/12/19 08:00 Cephulac PO Q6H BRIDGER Ondansetron HCl 4 mg 10/12/19 03:47 Zofran IV Q8H PRN Nausea And Vomiting Sodium Chloride 10 ml 10/12/19 10:00 Sodium Chloride Flush Syringe 10 Ml IV BID BRIDGER Sodium Chloride 10 ml 10/12/19 03:47 Sodium Chloride Flush Syringe 10 Ml IV PRN PRN LINE FLUSH
[2019-10-12] MEDS: LACTULOSE 20 GM/30 ML ORAL LIQD PO SCH ×3 (08:59→22:39)
--- NOTE | 2019-10-12 14:35 | Consultation ---
INDICATION: 1. Cirrhosis. 2. Hepatic encephalopathy. HISTORY OF PRESENT ILLNESS: The patient is a 64-year-old female with a history of hypertension, diabetes, CHF and cirrhosis, presents for evaluation. The patient recently was discharged from [place] for rib fracture. The patient presents now with decreased mental status, was noted to have a high ammonia level. The patient had recently had a urinary tract infection. The patient subsequently was admitted for encephalopathy. No other reported complaints including diarrhea, constipation or rectal bleeding. Denies any nausea, vomiting. No other specific complaints. PAST MEDICAL HISTORY: Hypertension, diabetes, coronary artery disease, CHF, and cirrhosis. ALLERGIES: LISINOPRIL, CODEINE. MEDICATIONS: Reviewed and updated in chart. SOCIAL HISTORY: Denies alcohol, tobacco or drug abuse. FAMILY HISTORY: Negative for colon cancer, IBD, or liver disease. REVIEW OF SYSTEMS: GENERAL: Reports some weakness. HEENT: No visual complaints or tinnitus. PULMONARY: No shortness of breath. No cough. No chest pain. PSYCHIATRIC: Reports decreased mental status. All points of 13-point review of systems otherwise negative. PHYSICAL EXAMINATION: VITAL SIGNS: Temperature of 97.8, pulse 96, respiration 18, blood pressure 140/70. GENERAL: Fairly nourished female in no acute distress. HEENT: Pupils equal, round and reactive. PULMONARY: Rhonchi. CARDIOVASCULAR: Regular rhythm. Normal S1, S2. ABDOMEN: Palpable soft. SKIN: No obvious rashes. LABORATORY DATA: White count of 6.1, hemoglobin and hematocrit 11.9 and 36.0, platelet count of 105. Coags within normal limits. AST and ALT of 86 and 42, alkaline phosphatase of 212. Ammonia initially of 349, now 100. ASSESSMENT AND PLAN: A 64-year-old female with history of cirrhosis, unclear etiology, now presents with signs and symptoms of hepatic encephalopathy, now better after lactulose. PLAN: 1. Continue lactulose as ordered. 2. Follow labs. 3. Continue Rocephin as ordered. 4. No plans for other intervention. 5. If mental status stable in a.m., okay to discharge from GI standpoint. JOB# [id number] CAB/NTS
[2019-10-12] MEDS ORDERED: cefTRIAXone/NS 1 GM/50 ML 1 GM/50 ML BAG IV SCH (22:00)
[2019-10-13 05:09] LABS: BUN/Creatinine Ratio 21; Blood Urea Nitrogen 19 mg/dL (7-17); Calcium 8.7 mg/dL (8.4-10.2); Hemolysis Index 4
[2019-10-13 05:16] LABS: Basophils % (Auto) 0.4 % (0.0-1.8); Eosinophils # (Auto) 0.1 K/mm3 (0.0-0.4); Eosinophils % (Auto) 1.7 % (0.0-4.3); Hemoglobin 11.3 gm/dl (10.1-14.3); Lymphocytes # (Auto) 1.2 K/mm3 (1.2-5.4); Mean Corpuscular HGB Conc 34 % (30-34); Mean Corpuscular Volume 101 fl (79-97); Monocytes # (Auto) 0.6 K/mm3 (0.0-0.8); Monocytes % (Auto) 9.5 % (0.0-7.3); Platelet Count 129 K/mm3 (140-440); Red Blood Count 3.26 M/mm3 (3.65-5.03); Red Cell Distribution Width 15.9 % (13.2-15.2)
[2019-10-13] MEDS: LACTULOSE 20 GM/30 ML ORAL LIQD PO SCH ×3 (06:59→13:01)
[2019-10-13] MEDS ORDERED: traMADol 50 MG TAB PO PRN (10:00)
--- NOTE | 2019-10-13 11:03 | Gastroenterology Progress Note ---
Assessment and Plan Liver: cirrhosis presents w/ encephalopathy now resolved - pt ammonia now w/in normal limits - A&O x 3 - low protein diet - continue Lactulose w/ Xifaxan as outpt - ok to d/c from GI standpoint Subjective Date of service: 10/13/19 Interval history: - reports feeling better, more alert PUI?: No Objective - Constitutional Vitals: Temp Pulse Resp BP Pulse Ox 98.5 F 56 L 22 164/63 97 10/13/19 07:52 10/13/19 07:52 10/13/19 07:52 10/13/19 07:52 10/13/19 07:52 General appearance: no acute distress - EENT Eyes: PERRL - Respiratory Respiratory: bilateral: CTA - Cardiovascular Rhythm: regular Heart Sounds: Present: S1 & S2 - Gastrointestinal General gastrointestinal: Present: soft, non-tender, non-distended - Labs CBC & Chem 7: 10/13/19 04:27 10/13/19 04:27 Labs: Laboratory Results - last 24 hr 10/12/19 10/12/19 10/13/19 08:29 14:14 01:02 WBC RBC Hgb Hct MCV MCH MCHC RDW Plt Count Lymph % (Auto) King % (Auto) Eos % (Auto) Baso % (Auto) Lymph # King # Eos # Baso # Seg Neutrophils % Seg Neutrophils # Sodium Potassium Chloride Carbon Dioxide Anion Gap BUN Creatinine Estimated GFR BUN/Creatinine Ratio Glucose POC Glucose 76 82 Calcium Ammonia 100.0 H 10/13/19 10/13/19 10/13/19 03:29 04:27 04:27 WBC 6.7 RBC 3.26 L Hgb 11.3 Hct 33.0 MCV 101 H MCH 35 H MCHC 34 RDW 15.9 H Plt Count 129 L Lymph % (Auto) 18.0 King % (Auto) 9.5 H Eos % (Auto) 1.7 Baso % (Auto) 0.4 Lymph # 1.2 King # 0.6 Eos # 0.1 Baso # 0.0 Seg Neutrophils % 70.4 H Seg Neutrophils # 4.7 Sodium 147 H Potassium 3.7 Chloride 111.3 H Carbon Dioxide 23 Anion Gap 16 BUN 19 H Creatinine 0.9 Estimated GFR > 60 BUN/Creatinine Ratio 21 Glucose 99 POC Glucose Calcium 8.7 Ammonia 47.0 10/13/19 07:22 WBC RBC Hgb Hct MCV MCH MCHC RDW Plt Count Lymph % (Auto) King % (Auto) Eos % (Auto) Baso % (Auto) Lymph # King # Eos # Baso # Seg Neutrophils % Seg Neutrophils # Sodium Potassium Chloride Carbon Dioxide Anion Gap BUN Creatinine Estimated GFR BUN/Creatinine Ratio Glucose POC Glucose 85 Calcium Ammonia
[2019-10-13 12:00] VITALS: BP 149/60
--- NOTE | 2019-10-13 12:49 | Discharge Summary ---
Providers - Providers Date of Admission: 10/12/19 03:02 Date of discharge: 10/13/19 Attending physician: KURT BLOOD 10/12/19 08:40 Consult to Physician [CONS] Routine Comment: Consulting Provider: DONTAE DARBY Physician Instructions: Reason For Exam: cirrhosis 10/12/19 09:35 Consult to Wound/ET Nurse [CONS] Routine Reason For Exam: wound eval 10/12/19 09:36 Occupational Therapy Evaluate and Treat [CONS] Routine Comment: Reason For Exam: Generalized weakness Physical Therapy Evaluation and Treat [CONS] Routine Comment: Reason For Exam: Generalized weakness Primary care physician: BUNNY HICKMAN MD Hospitalization Reason for admission: Altered mental status Condition: Stable Pertinent studies: Head CT, chest x-ray Hospital course: Patient is a 64-year-old woman with a history of hypertension, diabetes, coronary artery disease, CHF, cirrhosis was brought to the emergency room for evaluation of altered mental status, generalized weakness and decreased ADL. She was discharged from [place] 3 days ago for rib fracture. On admission her ammonia level was 349, UA was suggestive for UTI. Patient was placed on lactulose and IV antibiotic, admitted for hepatic encephalopathy, urinary tract infection. Her head CT was unremarkable, no infiltrates on chest x-ray. Her ammonia level improved to 47, was having regular bowel movement, her mental status improved, was given supportive care and monitored clinically. Patient was then discharged home in stable condition with outpatient follow-up. Discharge diagnosis: Hepatic encephalopathy: Resolved, continue lactulose, normal ammonia level on discharge Urinary tract infection: Treated with antibiotics Hypertension: Continue outpatient medications Diabetes melitus type 2: Consistent carb diet Coronary artery disease/CHF, stable Thrombocytopenia most likely chronic from cirrhosis: Stable Morbid Obesity, bmi 41.5: Advised lifestyle modifications as outpatient as tolerated H/o Cirrhosis, outpatient follow-up with GI Coagulopathy: Stable, no active bleeding Hypoalbuminemia, due to hepatic cirrhosis Mild RADHA, due to vasomotor nephropathy, resolved DVT prophylaxis: scd only due to low plt Physical exam: Gen: WDWN, bmi 41.5 obesity, NAD, Awake, Alert, oriented x 3 HEENT: NCAT, EOMI, PERRL, OP Clear Neck: supple, no adenopathy, no thyromegaly, no JVD CVS/Heart: bradycardia, normal S1S2, pulses present bilaterally Chest/Lungs: diminished bs bilateral, Symmetrical chest expansion, good air entry bilaterally GI/Abdomen: soft, NT +distension, good bowel sounds, no guarding or rebound /Bladder: no suprapubic tenderness, no CVA or paraspinal tenderness Extermity/Skin: ble pitting edema MSK: FROM x 4 Neuro: CN 2-12 grossly intact, no new focal deficits Psych: calm Disposition: DC/TX-06 HOME UNDER HOME [facility] Time spent for discharge: 34 minutes Core Measure Documentation - Palliative Care Palliative Care/ Comfort Measures: Not Applicable - Core Measures Any of the following diagnoses?: history only Exam - Constitutional Vitals: Temp Pulse Resp BP Pulse Ox 98.7 F 59 L 18 149/60 96 10/13/19 11:49 10/13/19 11:49 10/13/19 11:49 10/13/19 11:49 10/13/19 11:49 Plan Activity: advance as tolerated Weight Bearing Status: Weight Bear as Tolerated Diet: diabetic Special Instructions: record daily weights Additional Instructions: Follow-up at [place] outpatient clinic in 1 week. Follow up with: ZEKE GUMAAN MD [Referring] - 3-5 Days Prescriptions: Lactulose [Cephulac] 20 gm PO Q6H 30 Days
--- NOTE | 2019-11-19 03:49 | Consultation ---
ADDENDUM REFERRING PHYSICIAN: Sandra Olivier MD JOB# [id number] CAB/NTS
== END 2019-10-13 14:39 | disposition home health service (06) ==
LOC: ED 21:19 → INTOOBSV 10-12 03:02 → UNDOADMIN 10-12 03:02 → 4A 10-12 03:02
PROVIDERS: ADMIT Internal Medicine; ATTEND Internal Medicine
DX: N39.0 Urinary tract infection, site not specified (principal); K72.90 Hepatic failure, unspecified without coma; E66.01 Morbid (severe) obesity due to excess calories; E88.09 Other disorders of plasma-protein metabolism, not elsewhere classified; D68.9 Coagulation defect, unspecified; D69.6 Thrombocytopenia, unspecified; E11.9 Type 2 diabetes mellitus without complications; I11.0 Hypertensive heart disease with heart failure; I50.9 Heart failure, unspecified; I25.10 Atherosclerotic heart disease of native coronary artery without angina pectoris; K74.60 Unspecified cirrhosis of liver; M19.90 Unspecified osteoarthritis, unspecified site; F17.200 Nicotine dependence, unspecified, uncomplicated; Z87.442 Personal history of urinary calculi; Z90.49 Acquired absence of other specified parts of digestive tract; Z95.828 Presence of other vascular implants and grafts; Z79.4 Long term (current) use of insulin; Z79.899 Other long term (current) drug therapy; Z88.5 Allergy status to narcotic agent; Z88.8 Allergy status to other drugs, medicaments and biological substances; Z68.41 Body mass index [BMI] 40.0-44.9, adult
CPT/HCPCS: 36415; 70450; 71045; 80048; 80076; 81001; 82140; 82962; 83690; 84484; 85025; 85610; 85730; 93005; 93010; 96365; 96366; 97165; 99285; G0378; J0696; J2310

== ENCOUNTER 2020-09-14 11:40 | Observation (INO) | payer MEDICARE ==
--- NOTE | 2020-09-14 12:20 | Emergency Department Report ---
- General Chief complaint: Dizziness Stated complaint: DIZZINESS Time Seen by Provider: 09/14/20 12:04 Source: patient, family Mode of arrival: Wheelchair Limitations: No Limitations - History of Present Illness Initial comments: This is a 65 yo female with pmh of CAD s/p CABG in 2011, HFrEF (EF 35%), liver cirrhosis, HTN, and DM admitted on 08/12/2020 for CHF exacerbation with sob, LE edema and abdominal distension. Patient presented to her developmental services worker office and was sent to the ED for inpatient management. Since admission, patient has been on IV diuretics with LE edema improving. Following admission, She also reports having several loose stools that were black tarry on Saturday and Saturday along with vomiting coffee ground emesis. Patient also noted to have A. fib during this visit as well. Patient started on Coreg. Patient called her developmental services worker yesterday because she was feeling dizzy. Also states she was taking her heart rate at home and it was in the mid 30s. Her Coreg dose was cut in half but she states that she was still feeling the same way today and she was advised to come to the emergency department. Patient is denying any chest pain cough cold co ngestion fevers or chills. States she has had some mild nausea but no vomiting or diarrhea. Patient states she just feels weak and fatigued. Severity scale (0 -10): 0 - Related Data Home Medications Medication Instructions Recorded Confirmed Last Taken Acesulfame Potassium 10 meq PO BID 08/12/20 08/12/20 Unknown Ascorbic Acid [Vitamin C] 1,000 mg PO DAILY 08/12/20 08/12/20 Unknown B12 Active 2,500 mcg PO QDAY 08/12/20 08/12/20 Unknown Carbonyl Iron 28 mg PO QDAY 08/12/20 08/12/20 Unknown Cholecalciferol (Vitamin D3) 25 mcg PO DAILY 08/12/20 08/12/20 Unknown [Vitamin D3] Clopidogrel [Plavix] 75 mg PO QDAY 08/12/20 08/12/20 Unknown Fenofibrate 160 mg PO QDAY 08/12/20 08/12/20 Unknown Furosemide [Lasix TAB] 40 mg PO BID 08/12/20 08/16/20 Unknown ISOSORBIDE MONOnitrate [Imdur ER] 120 mg PO QDAY 08/12/20 08/16/20 Unknown Insulin Aspart (Nf) [NovoLOG 100 1 unit SQ AC 08/12/20 08/12/20 Unknown UNITS/ML VIAL] Insulin Glargine,Hum.rec.anlog 15 unit SQ QHS 08/12/20 08/12/20 Unknown [Basaglar Kwikpen U-100] Tizanidine HCl [Zanaflex 2mg CAP] 2 mg PO QHS 08/12/20 08/12/20 Unknown traZODone 100 mg PO QHS 08/12/20 08/12/20 Unknown Previous Rx's Medication Instructions Recorded Last Taken Type Spironolactone [Aldactone] 25 mg PO QDAY tablet 08/18/20 Unknown Rx carvediloL [Coreg] 3.125 mg PO BID #60 tablet 08/18/20 Unknown Rx Allergies Allergy/AdvReac Type Severity Reaction Status Date / Time lisinopril Allergy Severe Shortness Verified 09/14/20 11:43 of Breath codeine Allergy Intermediate Itching Verified 09/14/20 11:43 Yizvfpo-Vyq-Ugs Reductase Allergy Unknown Verified 09/14/20 11:43 Inhibitor lactose AdvReac Unknown Verified 09/14/20 11:43 ED Review of Systems ROS: Stated complaint: DIZZINESS Other details as noted in HPI Comment: All other systems reviewed and negative ED Past Medical Hx - Past Medical History Hx Hypertension: Yes Hx Congestive Heart Failure: Yes Hx Diabetes: Yes Hx Renal Disease: Yes (CKD) Hx Arthritis: Yes Hx Kidney Stones: Yes Hx Asthma: No Hx COPD: No Hx HIV: No Additional medical history: Lithotripsy, stent, urosepsis, kidney stones. dvt - Surgical History Hx Open Heart Surgery: Yes (2011) Hx Pacemaker: No Hx Internal Defibrillator: No Hx Cholecystectomy: Yes (1975) Additional Surgical History: stents in legs - Social History Smoking Status: Former Smoker Substance Use Type: None - Medications Home Medications: Home Medications Medication Instructions Recorded Confirmed Last Taken Type Acesulfame Potassium 10 meq PO BID 08/12/20 08/12/20 Unknown History Ascorbic Acid [Vitamin C] 1,000 mg PO DAILY 08/12/20 08/12/20 Unknown History B12 Active 2,500 mcg PO QDAY 08/12/20 08/12/20 Unknown History Carbonyl Iron 28 mg PO QDAY 08/12/20 08/12/20 Unknown History Cholecalciferol (Vitamin D3) 25 mcg PO DAILY 08/12/20 08/12/20 Unknown History [Vitamin D3] Clopidogrel [Plavix] 75 mg PO QDAY 08/12/20 08/12/20 Unknown History Fenofibrate 160 mg PO QDAY 08/12/20 08/12/20 Unknown History Furosemide [Lasix TAB] 40 mg PO BID 08/12/20 08/16/20 Unknown History ISOSORBIDE MONOnitrate [Imdur ER] 120 mg PO QDAY 08/12/20 08/16/20 Unknown History Insulin Aspart (Nf) [NovoLOG 100 1 unit SQ AC 08/12/20 08/12/20 Unknown History UNITS/ML VIAL] Insulin Glargine,Hum.rec.anlog 15 unit SQ QHS 08/12/20 08/12/20 Unknown History [Basaglar Kwikpen U-100] Tizanidine HCl [Zanaflex 2mg CAP] 2 mg PO QHS 08/12/20 08/12/20 Unknown History traZODone 100 mg PO QHS 08/12/20 08/12/20 Unknown History Spironolactone [Aldactone] 25 mg PO QDAY tablet 08/18/20 Unknown Rx carvediloL [Coreg] 3.125 mg PO BID #60 tablet 08/18/20 Unknown Rx ED Physical Exam - General Limitations: No Limitations General appearance: alert, in no apparent distress - Head Head exam: Present: atraumatic, normocephalic - Eye Eye exam: Present: normal appearance, PERRL, EOMI - ENT ENT exam: Present: mucous membranes moist - Neck Neck exam: Present: normal inspection - Respiratory Respiratory exam: Present: normal lung sounds bilaterally. Absent: respiratory distress, wheezes, rales, rhonchi - Cardiovascular Cardiovascular Exam: Present: bradycardia, irregular rhythm. Absent: systolic murmur, diastolic murmur, rubs, gallop - GI/Abdominal GI/Abdominal exam: Present: soft, normal bowel sounds, other (Bruise on the left lower quadrant secondary to insulin use). Absent: distended, tenderness, guarding, rebound - Extremities Exam Extremities exam: Present: normal inspection - Back Exam Back exam: Present: normal inspection - Neurological Exam Neurological exam: Present: alert, oriented X3 - Psychiatric Psychiatric exam: Present: normal affect, normal mood - Skin Skin exam: Present: warm, dry, intact, normal color. Absent: rash ED Course Vital Signs 09/14/20 09/14/20 09/14/20 11:49 12:10 12:18 Temperature 98.2 F Pulse Rate 42 L 42 L 42 L Respiratory 16 12 16 Rate Blood Pressure Blood Pressure 112/51 113/38 [Right] O2 Sat by Pulse 100 100 100 Oximetry 09/14/20 09/14/20 12:19 13:01 Temperature Pulse Rate 53 L Respiratory 19 Rate Blood Pressure 113/38 Blood Pressure [Right] O2 Sat by Pulse 100 99 Oximetry ED Medical Decision Making - Lab Data Result diagrams: 09/14/20 12:19 09/14/20 12:19 Lab Results 09/14/20 09/14/20 Range/Units 12:19 12:19 WBC 8.2 (4.5-11.0) K/mm3 RBC 2.59 L (3.65-5.03) M/mm3 Hgb 9.1 L (10.1-14.3) gm/dl Hct 26.3 L (30.3-42.9) % MCV 102 H (79-97) fl MCH 35 H (28-32) pg MCHC 35 H (30-34) % RDW 18.4 H (13.2-15.2) % Plt Count 156 (140-440) K/mm3 Lymph % (Auto) 13.3 L (13.4-35.0) % [place] % (Auto) 11.7 H (0.0-7.3) % Eos % (Auto) 1.2 (0.0-4.3) % Baso % (Auto) 0.3 (0.0-1.8) % Lymph # (Auto) 1.1 L (1.2-5.4) K/mm3 [place] # (Auto) 1.0 H (0.0-0.8) K/mm3 Eos # (Auto) 0.1 (0.0-0.4) K/mm3 Baso # (Auto) 0.0 (0.0-0.1) K/mm3 Seg Neutrophils % 73.5 H (40.0-70.0) % Seg Neutrophils # 6.1 (1.8-7.7) K/mm3 Sodium 133 L (137-145) mmol/L Potassium 4.7 (3.6-5.0) mmol/L Chloride 102.8 (98-107) mmol/L Carbon Dioxide 22 (22-30) mmol/L Anion Gap 13 mmol/L BUN 44 H (7-17) mg/dL Creatinine 1.8 H (0.6-1.2) mg/dL Estimated GFR 28 ml/min BUN/Creatinine Ratio 24 % Glucose 95 (65-100) mg/dL Calcium 8.2 L (8.4-10.2) mg/dL Total Bilirubin 1.30 H (0.1-1.2) mg/dL AST 78 H (5-40) units/L ALT 26 (7-56) units/L Alkaline Phosphatase 136 H (35-129) units/L Troponin T < 0.010 (0.00-0.029) ng/mL Total Protein 6.2 L (6.3-8.2) g/dL Albumin 2.4 L (3.9-5) g/dL Albumin/Globulin Ratio 0.6 % - EKG Data -: EKG Interpreted by Me - EKG Data 09/14/20 12:20 EKG shows a bradycardia with a rate of 42. Rate is irregular. Every other beat has what appears to be P waves. Possible junctional rhythm. Left bundle branch block present. [place] is normal. Time of interpretation 12:00 - Radiology Data Patient is continued to have a heart rate in the 40s. Rhythm is remained irregularly irregular. Patient to be admitted to the hospital service with cardiology consult. Critical Care Time: Yes (30) Critical care attestation.: If time is entered above; I have spent that time in minutes in the direct care of this critically ill patient, excluding procedure time. ED Disposition Clinical Impression: Symptomatic bradycardia, Junctional bradycardia Disposition: OP ADMIT IP TO THIS HOSP Is pt being admited?: Yes Does the pt Need Aspirin: No Condition: Stable Referrals: PRIMARY CARE, [Primary Care Provider] - 3-5 Days Time of Disposition: 13:44
--- NOTE | 2020-09-14 12:37 | XRay Report ---
CHEST 1 VIEW 09/14/2020 11:28 AM INDICATION / CLINICAL INFORMATION: symp anemia. COMPARISON: 08/12/2020 FINDINGS: SUPPORT DEVICES: None. HEART / MEDIASTINUM: Changes of prior median sternotomy are noted LUNGS / PLEURA: No significant pulmonary or pleural abnormality. No pneumothorax. ADDITIONAL FINDINGS: No significant additional findings. IMPRESSION: 1. No acute findings. Signer Name: Wilson Elizondo MD Signed: 09/14/2020 12:32 PM Workstation Name: [id number]
[2020-09-14 13:01] LABS: Basophils % (Auto) 0.3 % (0.0-1.8); Eosinophils # (Auto) 0.1 K/mm3 (0.0-0.4); Eosinophils % (Auto) 1.2 % (0.0-4.3); Hematocrit 26.3 % (30.3-42.9); Hemoglobin 9.1 gm/dl (10.1-14.3); Lymphocytes # (Auto) 1.1 K/mm3 (1.2-5.4); Lymphocytes % (Auto) 13.3 % (13.4-35.0); Mean Corpuscular HGB Conc 35 % (30-34); Mean Corpuscular Volume 102 fl (79-97); Monocytes % (Auto) 11.7 % (0.0-7.3); Platelet Count 156 K/mm3 (140-440); Red Blood Count 2.59 M/mm3 (3.65-5.03); Red Cell Distribution Width 18.4 % (13.2-15.2)
[2020-09-14 13:20] LABS: Alanine Aminotransferase 26 units/L (7-56); Albumin 2.4 g/dL (3.9-5); BUN/Creatinine Ratio 24; Blood Urea Nitrogen 44 mg/dL (7-17); Calcium 8.2 mg/dL (8.4-10.2); Hemolysis Index 5
[2020-09-14] MEDS ORDERED: SODIUM CHLORIDE 0.9% 1000 ML 1,000 ML IV ONE (13:22)
--- NOTE | 2020-09-14 14:28 | Consultation ---
History of Present Illness Consult date: 09/14/20 Requesting physician: OLIVER POLANCO Consult reason: bradycardia History of present illness: The pt is a 65 YO female with a past medical history of CAD s/p CABG in 2011, HFrEF, ICMP, sinus bradycardia, atrial fibrillation, no systemic AC secondary to anemia and thrombocytopenia, cirrhosos, portal hypertension, esophageal varices, GI bleed, HTN, DM, HLP, fibromyalgia, liver cirrhosis, PAD, statin intolerance. She is followed in our office by Dr. Mireles. She presented with c/o dizziness upon standing and bradycardia (HR 30s) for 3 days prior to arrival. Of note, pt was discharged from [facility] on 08/18/2020 following eval/management of HFrEF and GI bleed. Endoscopy done 08/17/2020 per operative report - Portal hypertensive gastropathy changes in the antrum and gastric body, distal esophageal varices, no active bleeding, banding ligation performed. At that time, she was discharged on coreg 3.125mg BID. Pt reports she was feeling in her normal state of health until her coreg was recently increased to 6.25mg BID. She denies any chest pain, SOB, palpitations, n/v or syncope. On evaluation, pt noted to be in NSR HR 59- 60, BP 90/40. tte done 08/12/2020 showed EF 35-40%, moderately decreased global left ventricul ar systolic function, mild AR. Past History Past Medical History: other (as per HPI) Medications and Allergies Allergies Allergy/AdvReac Type Severity Reaction Status Date / Time lisinopril Allergy Severe Shortness Verified 09/14/20 11:43 of Breath codeine Allergy Intermediate Itching Verified 09/14/20 11:43 Yxgxshm-Xop-Uvz Reductase Allergy Unknown Verified 09/14/20 11:43 Inhibitor lactose AdvReac Unknown Verified 09/14/20 11:43 Home Medications Medication Instructions Recorded Confirmed Last Taken Type Acesulfame Potassium 10 meq PO BID 08/12/20 09/14/20 Unknown History Ascorbic Acid [Vitamin C] 1,000 mg PO DAILY 08/12/20 09/14/20 Unknown History B12 Active 2,500 mcg PO QDAY 08/12/20 09/14/20 Unknown History Carbonyl Iron 28 mg PO QDAY 08/12/20 09/14/20 Unknown History Cholecalciferol (Vitamin D3) 25 mcg PO DAILY 08/12/20 09/14/20 Unknown History [Vitamin D3] Clopidogrel [Plavix] 75 mg PO QDAY 08/12/20 09/14/20 Unknown History Fenofibrate 160 mg PO QDAY 08/12/20 09/14/20 Unknown History Furosemide [Lasix TAB] 40 mg PO BID 08/12/20 09/14/20 Unknown History ISOSORBIDE MONOnitrate [Imdur ER] 120 mg PO QDAY 08/12/20 09/14/20 Unknown History Insulin Aspart (Nf) [NovoLOG 100 1 unit SQ AC 08/12/20 09/14/20 Unknown History UNITS/ML VIAL] Insulin Glargine,Hum.rec.anlog 15 unit SQ QHS 08/12/20 09/14/20 Unknown History [Basaglar Kwikpen U-100] Tizanidine HCl [Zanaflex 2mg CAP] 2 mg PO QHS 08/12/20 09/14/20 Unknown History traZODone 100 mg PO QHS 08/12/20 09/14/20 Unknown History Spironolactone [Aldactone] 25 mg PO QDAY tablet 08/18/20 09/14/20 Unknown Rx carvediloL [Coreg] 3.125 mg PO BID #60 tablet 08/18/20 09/14/20 Unknown Rx Review of Systems Constitutional: fatigue, no weight loss, no weight gain, no fever, no chills, no sweats Ears, nose, mouth and throat: no ear pain, no nose pain, no sinus pressure, no sinus pain Cardiovascular: lightheadedness, other (bradycardia), no chest pain, no orthopnea, no palpitations, no rapid/irregular heart beat, no edema, no syncope, no shortness of breath, no dyspnea on exertion, no high blood pressure, no leg edema Respiratory: no cough, no shortness of breath, no dyspnea on exertion, no congestion, no wheezing, no pain on inspiration Gastrointestinal: no abdominal pain, no nausea, no vomiting, no diarrhea, no constipation, no change in bowel habits Genitourinary Female: no pelvic pain, no flank pain, no menorrhagia, no dysuria, no urinary frequency Musculoskeletal: no neck stiffness, no neck pain, no shooting arm pain, no arm numbness/tingling, no low back pain, no shooting leg pain Integumentary: no rash, no pruritis, no redness, no sores, no wounds Neurological: no head injury, no paralysis, no weakness, no parathesias, no numbness, no tingling, no seizures, no syncope Psychiatric: no anxiety Endocrine: no cold intolerance, no heat intolerance Hematologic/Lymphatic: no easy bruising, no easy bleeding Allergic/Immunologic: no urticaria Physical Examination Vital Signs Temp Pulse Resp BP Pulse Ox 98.2 F 42 L 16 112/51 100 09/14/20 11:49 09/14/20 11:49 09/14/20 11:49 09/14/20 11:49 09/14/20 11:49 General appearance: no acute distress HEENT: Positive: PERRL, Normocephaly, Mucus Membranes Moist Neck: Positive: neck supple, trachea midline Cardiac: Positive: Regular Rhythm, S1/S2 Lungs: Positive: Decreased Breath Sounds Neuro: Positive: Grossly Intact Abdomen: Negative: Tender Skin: Negative: Rash Musculoskeletal: No Pain Extremities: Absent: edema Results 09/14/20 12:19 09/14/20 12:19 Cardiac Enzymes 09/14/20 Range/Units 12:19 AST 78 H (5-40) units/L CBC 09/14/20 Range/Units 12:19 WBC 8.2 (4.5-11.0) K/mm3 RBC 2.59 L (3.65-5.03) M/mm3 Hgb 9.1 L (10.1-14.3) gm/dl Hct 26.3 L (30.3-42.9) % Plt Count 156 (140-440) K/mm3 Lymph # (Auto) 1.1 L (1.2-5.4) K/mm3 [place] # (Auto) 1.0 H (0.0-0.8) K/mm3 Eos # (Auto) 0.1 (0.0-0.4) K/mm3 Baso # (Auto) 0.0 (0.0-0.1) K/mm3 Comprehensive Metabolic Panel 09/14/20 Range/Units 12:19 Sodium 133 L (137-145) mmol/L Potassium 4.7 (3.6-5.0) mmol/L Chloride 102.8 (98-107) mmol/L Carbon Dioxide 22 (22-30) mmol/L BUN 44 H (7-17) mg/dL Creatinine 1.8 H (0.6-1.2) mg/dL Glucose 95 (65-100) mg/dL Calcium 8.2 L (8.4-10.2) mg/dL AST 78 H (5-40) units/L ALT 26 (7-56) units/L Alkaline Phosphatase 136 H (35-129) units/L Total Protein 6.2 L (6.3-8.2) g/dL Albumin 2.4 L (3.9-5) g/dL - Imaging and Cardiology Echo: report reviewed ( 08/12/2020 showed EF 35-40%, moderately decreased global left ventricular systolic function, mild AR. ) EKG: report reviewed, image reviewed EKG interpretations - Telemetry EKG Rhythm: Sinus Bradycardia - EKG Supraventricular dysrhythmia: atrial fibrillation Assessment and Plan Pt presents with symptomatic bradycardia - intermittent AFib SVR, junctional rhythm and sinus bradycardia. Her home coreg was recently increased from 3.125mg BID to 6.25mg BID. Pt A&O, in SR HR 59 - 60s on evaluation, BP 90/40s. Hold AV ava blocking agents and consider gentle IVF. No current indication for temporary pacing. Pt with h/o intermittent sinus bradycardia and paroxysmal AFib. No systemic AC secondary to anemia and thrombocytopenia, cirrhosos, portal hypertension, esophageal varices, GI bleed. tte done 08/12/2020 showed EF 35-40%, moderately decreased global left ventricular systolic function, mild AR. No current clinical evidence of acutely decompensated HF. Cont to monitor closely on telemetry. Will follow. The patient has been seen in conjunction with Dr. Alvarado who agrees with the assessment and plan of care. - Patient Problems (1) Symptomatic bradycardia Current Visit: Yes Status: Acute (2) Paroxysmal atrial fibrillation Current Visit: Yes Status: Chronic (3) Junctional bradycardia Current Visit: Yes Status: Acute (4) CAD (coronary artery disease) Current Visit: Yes Status: Chronic (5) Hx of CABG Current Visit: Yes Status: Chronic (6) Ischemic cardiomyopathy Current Visit: Yes Status: Chronic (7) History of GI bleed Current Visit: Yes Status: Chronic (8) Anemia Current Visit: Yes Status: Chronic (9) Cirrhosis Current Visit: Yes Status: Chronic (10) HLD (hyperlipidemia) Current Visit: Yes Status: Chronic Qualifiers: Hyperlipidemia type: unspecified Qualified Code(s): E78.5 - Hyperlipidemia, unspecified (11) Statin intolerance Current Visit: Yes Status: Chronic (12) Diabetes Current Visit: Yes Status: Chronic (13) Fibromyalgia Current Visit: Yes Status: Chronic (14) RADHA (acute kidney injury) Current Visit: Yes Status: Acute
--- NOTE | 2020-09-14 15:03 | History and Physical Report ---
History of Present Illness Chief complaint: I feel dizzy and my heart is beating slow History of present illness: 65 YO Female with HTN, DM, HLD, Fibromyalgia, Cirrhosis complicated by Portal HTN, Esophageal Varices, DM, Atrial Fib not currently on therapeutic anticoagulatioin, CAD on antiplatelet therapy, PAD, Anemia, Thrombocytopenia presents to ED for evaluation. Pt was seen and evaluated in her Dentist/Owner's office today and was have symptomatic bradycardia with a heart rate in the 30s as well as a systolic blood pressure in the 90s. Patient transported to [facility] via private vehicle for further care and evaluation. Patient seen and evaluated in the emergency department. All lab and imaging studies reviewed. Patient found to have symptomatic bradycardia. Patient placed in observation status and admitted to telemetry due to increased risk of worsening symptoms. Cardiology team consulted in ED. Patient denies fever, chills, chest pain, palpitation, productive cough, skin rash, recent ill contacts, or known exposure to COVID-19. Prior admission on 08/13/2019 reviewed. All medication listed at time of admission has been reconciled. Advanced care planning conducted in ED. Past History Past Medical History: atrial fib, diabetes, hypertension, hyperlipidemia, other (as per HPI) Past Surgical History: cholecystectomy, CABG, Other (Vascular stent, ureteral stent) Social history: single. denies: smoking, alcohol abuse, prescription drug abuse Family history: CAD, diabetes, hypertension Medications and Allergies Allergies Allergy/AdvReac Type Severity Reaction Status Date / Time lisinopril Allergy Severe Shortness Verified 09/14/20 11:43 of Breath codeine Allergy Intermediate Itching Verified 09/14/20 11:43 Hcyagrl-Mrp-Aap Reductase Allergy Unknown Verified 09/14/20 11:43 Inhibitor lactose AdvReac Unknown Verified 09/14/20 11:43 Home Medications Medication Instructions Recorded Confirmed Last Taken Type Acesulfame Potassium 10 meq PO BID 08/12/20 09/14/20 Unknown History Ascorbic Acid [Vitamin C] 1,000 mg PO DAILY 08/12/20 09/14/20 Unknown History B12 Active 2,500 mcg PO QDAY 08/12/20 09/14/20 Unknown History Carbonyl Iron 28 mg PO QDAY 08/12/20 09/14/20 Unknown History Cholecalciferol (Vitamin D3) 25 mcg PO DAILY 08/12/20 09/14/20 Unknown History [Vitamin D3] Clopidogrel [Plavix] 75 mg PO QDAY 08/12/20 09/14/20 Unknown History Fenofibrate 160 mg PO QDAY 08/12/20 09/14/20 Unknown History Furosemide [Lasix TAB] 40 mg PO BID 08/12/20 09/14/20 Unknown History ISOSORBIDE MONOnitrate [Imdur ER] 120 mg PO QDAY 08/12/20 09/14/20 Unknown History Insulin Aspart (Nf) [NovoLOG 100 1 unit SQ AC 08/12/20 09/14/20 Unknown History UNITS/ML VIAL] Insulin Glargine,Hum.rec.anlog 15 unit SQ QHS 08/12/20 09/14/20 Unknown History [Basaglar Kwikpen U-100] Tizanidine HCl [Zanaflex 2mg CAP] 2 mg PO QHS 08/12/20 09/14/20 Unknown History traZODone 100 mg PO QHS 08/12/20 09/14/20 Unknown History Spironolactone [Aldactone] 25 mg PO QDAY tablet 08/18/20 09/14/20 Unknown Rx carvediloL [Coreg] 3.125 mg PO BID #60 tablet 08/18/20 09/14/20 Unknown Rx Review of Systems Constitutional: weakness, other (Low blood pressure), no weight loss, no weight gain, no fever, no sweats Ears, nose, mouth and throat: no ear pain, no nose pain, no nasal congestion Breasts: no change in shape, no mass Cardiovascular: no chest pain, no palpitations, no rapid/irregular heart beat, no edema, no syncope Respiratory: no cough, no excessive sputum, no hemoptysis, no shortness of breath Gastrointestinal: no abdominal pain, no nausea, no diarrhea, no constipation Genitourinary Female: no dysmenorrhea, no pelvic pain, no flank pain, no urinary frequency Rectal: no pain, no incontinence, no bleeding Musculoskeletal: no neck stiffness, no neck pain, no arm numbness/tingling Integumentary: no rash, no redness, no sores, no wounds, no boils Neurological: no head injury, no paralysis, no weakness, no tingling, no syncope, no tremors Psychiatric: no anxiety, no memory loss, no change in sleep habits, no insomnia, no change in libido, no disorientation, no hallucinations Endocrine: no cold intolerance, no polyphagia, no polyuria, no nocturia, no excessive sweating, no weight change Hematologic/Lymphatic: no easy bruising, no easy bleeding Allergic/Immunologic: no urticaria, no wheezing Exam - Constitutional Vitals: Temp Pulse Resp BP Pulse Ox 98.2 F 53 L 19 113/38 99 09/14/20 11:49 09/14/20 13:01 09/14/20 13:01 09/14/20 13:01 09/14/20 13:01 General appearance: Present: mild distress, obese - EENT Eyes: Present: PERRL ENT: hearing intact, clear oral mucosa - Neck Neck: Present: supple, normal ROM - Respiratory Respiratory effort: normal Respiratory: bilateral: CTA - Cardiovascular Rhythm: other (Bradycardia, hypotension) Heart Sounds: Present: S1 & S2. Absent: rub, click - Extremities Extremities: pulses symmetrical, No edema Peripheral Pulses: within normal limits - Abdominal General gastrointestinal: Present: soft, non-tender, non-distended, normal bowel sounds Female genitourinary: Present: normal - Integumentary Integumentary: Present: clear, warm, dry - Musculoskeletal Musculoskeletal: generalized weakness - Psychiatric Psychiatric: appropriate mood/affect, intact judgment & insight - Neurologic Neurologic: CNII-XII intact, moves all extremities HEART Score - HEART Score Troponin: Troponin T < 0.010 ng/mL (0.00-0.029) 09/14/20 12:19 Results - Labs CBC & Chem 7: 09/14/20 12:19 09/14/20 12:19 Labs: Abnormal lab results 09/14/20 09/14/20 Range/Units 12:19 12:19 RBC 2.59 L (3.65-5.03) M/mm3 Hgb 9.1 L (10.1-14.3) gm/dl Hct 26.3 L (30.3-42.9) % MCV 102 H (79-97) fl MCH 35 H (28-32) pg MCHC 35 H (30-34) % RDW 18.4 H (13.2-15.2) % Lymph % (Auto) 13.3 L (13.4-35.0) % [place] % (Auto) 11.7 H (0.0-7.3) % Lymph # (Auto) 1.1 L (1.2-5.4) K/mm3 [place] # (Auto) 1.0 H (0.0-0.8) K/mm3 Seg Neutrophils % 73.5 H (40.0-70.0) % Sodium 133 L (137-145) mmol/L BUN 44 H (7-17) mg/dL Creatinine 1.8 H (0.6-1.2) mg/dL Calcium 8.2 L (8.4-10.2) mg/dL Total Bilirubin 1.30 H (0.1-1.2) mg/dL AST 78 H (5-40) units/L Alkaline Phosphatase 136 H (35-129) units/L Total Protein 6.2 L (6.3-8.2) g/dL Albumin 2.4 L (3.9-5) g/dL Assessment and Plan - Patient Problems (1) Symptomatic bradycardia Current Visit: Yes Status: Acute Plan to address problem: Cardiology team consulted, telemetry monitoring, further testing as per cardiology team, continue medical management. (2) Acute HFrEF (heart failure with reduced ejection fraction) Current Visit: No Status: Acute Plan to address problem: Supportive care, continue medical management, blood pressure control, (3) Diabetes Current Visit: Yes Status: Acute Plan to address problem: Sliding-scale insulin therapy, Accu-Chek, hypoglycemia protocol, consistent carbohydrate diet (4) Fibromyalgia Current Visit: Yes Status: Chronic Plan to address problem: Supportive care, continue prehospital therapy, outpatient rheumatology follow- up. (5) HLD (hyperlipidemia) Current Visit: Yes Status: Chronic Qualifiers: Hyperlipidemia type: unspecified Qualified Code(s): E78.5 - Hyperlipidemia, unspecified Plan to address problem: Low-cholesterol diet, supportive care, continue medical management. (6) DVT prophylaxis Current Visit: No Status: Acute Plan to address problem: SCD to bilateral lower extremities while in bed, hold anticoagulation for now (7) Advance care planning Current Visit: Yes Status: Acute Plan to address problem: Disease education conducted, patient is full code, care plan discussed, diagnosis discussed, patient knowledges understanding agree with care plan, +30 minutes
[2020-09-14] MEDS ORDERED: ONDANSETRON 4 MG/2 ML INJ IV PRN (15:08)
[2020-09-14] MEDS ORDERED: ACETAMINOPHEN 325 MG TAB PO PRN (15:08)
--- NOTE | 2020-09-14 15:55 | Cat Scan Report ---
CT head/brain wo con INDICATION / CLINICAL INFORMATION: 65 years Female; collapse. TECHNIQUE: Routine CT head without contrast. All CT scans at this location are performed using CT dos e reduction for ALARA by means of automated exposure control. COMPARISON: 10/11/2019 FINDINGS: BRAIN / INTRACRANIAL CONTENTS: No acute hemorrhage, mass effect, midline shift, hydrocephalus, or acu te, large territorial infarct. No signs of significant atrophy or chronic infarct. Minimal, nonspecif ic white matter disease suggested. CRANIOCERVICAL JUNCTION: No significant abnormality. ORBITS: No significant abnormality of visualized orbits. SINUSES / MASTOIDS: Visualized paranasal sinuses and mastoid air cells are essentially clear. ADDITIONAL FINDINGS: Atherosclerotic disease is seen in the anterior and posterior circulation. IMPRESSION: 1. No focal mass, hemorrhage, hydrocephalus, or acute, large territorial infarct. Signer Name: Danny Hanson MD, III Signed: 09/14/2020 3:50 PM Workstation Name: [id number]
[2020-09-14] MEDS ORDERED: ALBUTEROL 2.5 MG/3 ML NEBU IH PRN (16:00)
[2020-09-14] MEDS ORDERED: DEXTROSE 50% IN WATER (25GM) 50 ML SYRINGE IV PRN (17:02)
[2020-09-14 18:14] LABS: Bacteria,Urine 1+ /HPF (Negative); Bilirubin,Urine NEG (Negative); Blood,Urine NEG (Negative); Color,Urine Yellow (Yellow); Mucus,Urine FEW /HPF; Protein,Urine <15 mg/dL mg/dL (Negative)
[2020-09-14] MEDS: INSULIN LISPRO 100 UNIT/ML SUB-Q SCH (21:20)
[2020-09-14] MEDS ORDERED: tiZANidine TAB 4 MG TAB PO SCH (22:00)
[2020-09-14] MEDS ORDERED: TRAZODONE 100 MG PO SCH (22:00)
[2020-09-14] MEDS ORDERED: [UNRECOGNIZED DRUG - OTHER] PO SCH (22:00)
[2020-09-14] MEDS ORDERED: TIZANIDINE HCL 2 MG PO SCH (22:00)
[2020-09-14] MEDS ORDERED: traZODone 100 MG TAB PO SCH (22:00)
[2020-09-15 05:38] LABS: Calcium 7.6 mg/dL (8.4-10.2)
--- NOTE | 2020-09-15 08:03 | Electrocardiograph Report ---
[facility] Test Date: 2020-09-14 Test Time: 11:58:30 Pat Name: AAMIR ALVAREZ Department: Room: A465 1 Gender: F Security Orderly: APARNA : 1955 Requested By: OLIVER POLANCO Order Number: [id number] Reading MD: Faustino Alvarado Measurements Intervals [place] Rate: 42 P: 59 CO: 221 QRS: 28 QRSD: 129 T: 14 QT: 472 QTc: 393 Interpretive Statements PREDOMINANT 2:[address]-t Normal Sinus Rhythm Electronically Signed On 09-16-2020 6:42:28 PDT by Faustino Alvarado
[2020-09-15] MEDS: INSULIN LISPRO 100 UNIT/ML SUB-Q SCH (09:15)
--- NOTE | 2020-09-15 09:59 | Progress Note ---
Assessment and Plan Pt resting in bed, feeling better today. tele reviewed - in SR HR 60s, SB HR low 45bpm noted overnight. BPs WNL today. Cont to hold coreg - recommend discontinuation of all AV ava blocking agents at this time in setting of symptomatic bradycardia. However, pt has known h/o ICMP and paroxysmal atrial fibrillation and may eventually require usage of BB and thus may benefit from PPM/AICD implantation in the future. Will plan for EP evaluation as OP. Cont all other home cardiac regimen. Pt may discharge from cardiology standpoint. Follow up in our [place] office with Dr. Mireles on 09/16/2020 @ 8:30AM. The patient has been seen in conjunction with Dr. Alvarado who agrees with the assessment and plan of care. - Patient Problems (1) Symptomatic bradycardia Current Visit: Yes Status: Acute (2) Paroxysmal atrial fibrillation Current Visit: Yes Status: Chronic (3) Junctional bradycardia Current Visit: Yes Status: Acute (4) CAD (coronary artery disease) Current Visit: Yes Status: Chronic (5) Hx of CABG Current Visit: Yes Status: Chronic (6) Ischemic cardiomyopathy Current Visit: Yes Status: Chronic (7) History of GI bleed Current Visit: Yes Status: Chronic (8) Anemia Current Visit: Yes Status: Chronic (9) Cirrhosis Current Visit: Yes Status: Chronic (10) HLD (hyperlipidemia) Current Visit: Yes Status: Chronic Qualifiers: Hyperlipidemia type: unspecified Qualified Code(s): E78.5 - Hyperlipidemia, unspecified (11) Statin intolerance Current Visit: Yes Status: Chronic (12) Diabetes Current Visit: Yes Status: Chronic (13) Fibromyalgia Current Visit: Yes Status: Chronic (14) RADHA (acute kidney injury) Current Visit: Yes Status: Acute Subjective Date of service: 09/15/20 Principal diagnosis: symptomatic bradycardia Interval history: pt resting in bed, feeling better today. tele reviewed - in SR HR 60s, SB HR low 45bpm noted overnight. BPs WNL today. Objective Last Vital Signs Temp 98.6 F 09/15/20 08:18 Pulse 66 09/15/20 08:18 Resp 16 09/15/20 08:18 BP 117/47 09/15/20 08:18 Pulse Ox 98 09/15/20 08:18 - Physical Examination General: No Apparent Distress HEENT: Positive: PERRL, Normocephaly, Mucus Membranes Moist Neck: Positive: neck supple, trachea midline Cardiac: Positive: Regular Rhythm, S1/S2 Lungs: Positive: Decreased Breath Sounds Neuro: Positive: Grossly Intact Abdomen: Negative: Tender Skin: Negative: Rash Musculoskeletal: No Pain Extremities: Absent: edema - Labs and Meds Cardiac Enzymes 09/14/20 Range/Units 12:19 AST 78 H (5-40) units/L CBC 09/14/20 Range/Units 12:19 WBC 8.2 (4.5-11.0) K/mm3 RBC 2.59 L (3.65-5.03) M/mm3 Hgb 9.1 L (10.1-14.3) gm/dl Hct 26.3 L (30.3-42.9) % Plt Count 156 (140-440) K/mm3 Lymph # (Auto) 1.1 L (1.2-5.4) K/mm3 [place] # (Auto) 1.0 H (0.0-0.8) K/mm3 Eos # (Auto) 0.1 (0.0-0.4) K/mm3 Baso # (Auto) 0.0 (0.0-0.1) K/mm3 Comprehensive Metabolic Panel 09/14/20 09/15/20 Range/Units 12:19 04:55 Sodium 133 L 137 (137-145) mmol/L Potassium 4.7 4.6 (3.6-5.0) mmol/L Chloride 102.8 109.4 H (98-107) mmol/L Carbon Dioxide 22 21 L (22-30) mmol/L BUN 44 H 40 H (7-17) mg/dL Creatinine 1.8 H 1.7 H (0.6-1.2) mg/dL Glucose 95 105 H (65-100) mg/dL Calcium 8.2 L 7.6 L (8.4-10.2) mg/dL AST 78 H (5-40) units/L ALT 26 (7-56) units/L Alkaline Phosphatase 136 H (35-129) units/L Total Protein 6.2 L (6.3-8.2) g/dL Albumin 2.4 L (3.9-5) g/dL - Imaging and Cardiology EKG: report reviewed, image reviewed Echo: report reviewed ( 08/12/2020 showed EF 35-40%, moderately decreased global left ventricular systolic function, mild AR. ) - Telemetry EKG Rhythm: Sinus Rhythm
[2020-09-15] MEDS ORDERED: CARBONYL IRON PO SCH (10:00)
[2020-09-15] MEDS ORDERED: CYANOCOBALAMIN (VIT B-12) 1000 MCG TAB PO SCH (10:00)
[2020-09-15] MEDS ORDERED: NON-FORMULARY EACH (Fenofibrate [Fenofibrate] 160 MG Tablet) PO SCH (10:00)
[2020-09-15] MEDS ORDERED: FENOFIBRATE 145 MG TAB PO SCH (10:00)
[2020-09-15] MEDS ORDERED: FUROSEMIDE 40 MG TAB PO SCH (10:00)
[2020-09-15] MEDS ORDERED: ASCORBIC ACID 500 MG TAB PO SCH (10:00)
[2020-09-15] MEDS ORDERED: NON-FORMULARY EACH (Ascorbic Acid [Vitamin C] 1,000 MG Tablet) PO SCH (10:00)
[2020-09-15] MEDS ORDERED: CHOLECALCIFEROL 50 MCG PO SCH (10:00)
[2020-09-15] MEDS ORDERED: [UNRECOGNIZED DRUG - OTHER] PO SCH (10:00)
[2020-09-15] MEDS ORDERED: CLOPIDOGREL 75 MG TAB PO SCH (10:00)
[2020-09-15] MEDS ORDERED: SPIRONOLACTONE 25 MG TAB PO SCH (10:00)
[2020-09-15] MEDS ORDERED: CHOLECALCIFEROL (VIT D3) 1000 UNIT (25 mcg) TAB PO SCH (10:00)
--- NOTE | 2020-09-15 10:21 | Electrocardiograph Report ---
[facility] Test Date: 2020-09-15 Test Time: 09:54:17 Pat Name: AAMIR ALVAREZ Department: Room: A465 1 Gender: F Scale Adjuster: SARAY : 1955 Requested By: TK PITTS Order Number: [id number] Reading MD: Faustino Alvarado Measurements Intervals [place] Rate: 62 P: 70 NM: 238 QRS: 22 QRSD: 118 T: 21 QT: 386 QTc: 394 Interpretive Statements Sinus rhythm Prolonged NM interval NONSPECIFIC T ABNORMALITIES, LATERAL LEADS Compared to ECG 09/14/2020 11:58:30 First degree AV block now present Intraventricular conduction delay now present Myocardial infarct finding now present Left bundle-branch block no longer present Electronically Signed On 09-16-2020 6:46:21 PDT by Faustino Alvarado
--- NOTE | 2020-09-15 10:50 | Discharge Summary ---
Providers - Providers Date of Admission: 09/14/20 15:12 Date of discharge: 09/15/20 Attending physician: SANTI COPELAND Primary care physician: DARRION MIRELES Hospitalization Reason for admission: Symptomatic bradycardia/dizziness and bradycardia upon standing Condition: Stable Pertinent studies: Chest x-ray: No acute abnormality CT head: No acute abnormality Hospital course: 65 YO female patient past medical history of CAD s/p CABG in 2011, HFrEF, ICMP, sinus bradycardia, atrial fibrillation, no systemic AC secondary to anemia and thrombocytopenia, cirrhosos, portal hypertension, esophageal varices, GI bleed, HTN, DM, HLP, fibromyalgia, liver cirrhosis, PAD, statin intolerance follows with ball truing machine operator Dr. Mireles of [facility] was admitted through emergency room with symptomatic bradycardia with dizziness upon standing with heart rate ranging in 30s and 40s for 3 days duration. Patient also has history of portal hypertensive gastropathy with varices on recent endoscopy in August 20. patient was on low-dose Coreg for her cardiac issues. Patient was admitted AV ava blockers group of medications were stopped, evaluated by cardiology, medications optimized Patient also has acute systolic congestive heart failure with EF of 35 to 40%. Patient blood pressure blood sugars closely monitored medications optimized Symptoms slowly but significantly improved, today heart rate ranges between 60s and 70s. Cardiology recommend to stop all the AV ava blocking agents However patient with history of coronary artery disease and atrial fibrillation may need AV ava blocking agents hence recommend EP cardiology evaluation as outpatient for ICD versus permanent pacemaker. Advised to follow primary care physician and primary ball truing machine operator per schedule Blood pressures well controlled. Patient is comfortable for tomorrow no new complaints vital signs stable Ambulating tolerating oral nutrition Patient is hemodynamically and clinically stable at time of discharge -- Symptomatic bradycardia Current Visit: Yes Status: Acute . Cardiology recommended to hold all other AV ava blocking agents, And follow-up EP ball truing machine operator for possible PPM/ICD placement --Acute HFrEF (heart failure with reduced ejection fraction) Current Visit: No Status: Acute Antifailure medications, except for beta-blockers --Type II diabetes Current Visit: Yes Status: Acute Accu-Chek sliding scale coverage ADA diet and long-acting insulin as needed -- Fibromyalgia Current Visit: Yes Status: Chronic continue prehospital therapy, outpatient rheumatology follow-up. --HLD (hyperlipidemia) Current Visit: Yes Status: Chronic Low-cholesterol diet, patient is allergic to statin --DVT prophylaxis Current Visit: No Status: Acute SCD to bilateral lower extremities while in bed, hold anticoagulation for now Cleared by cardiology for discharge Stable at discharge. Disposition: DC-01 TO HOME OR SELFCARE Final Discharge Diagnosis (Prints w/discharge instructions): Symptomatic bradycardia. Acute systolic congestive heart failure. Fibromyalgia. Type 2 diabetes mellitus. Dyslipidemia. Obesity BMI 32.8 Time spent for discharge: 35 min Core Measure Documentation - Palliative Care Palliative Care/ Comfort Measures: Not Applicable - Core Measures Any of the following diagnoses?: none Exam - Constitutional Vitals: Temp Pulse Resp BP Pulse Ox 98.6 F 66 16 117/47 97 09/15/20 08:18 09/15/20 08:18 09/15/20 08:18 09/15/20 08:18 09/15/20 10:00 General appearance: Present: no acute distress, well-nourished - EENT Eyes: Present: PERRL, EOM intact - Neck Neck: Present: supple, normal ROM - Respiratory Respiratory effort: normal Respiratory: bilateral: diminished, rales, negative: rhonchi, wheezing - Cardiovascular Rhythm: regular Heart Sounds: Present: S1 & S2 - Extremities Extremities: no ischemia, No edema - Abdominal General gastrointestinal: Present: soft, non-tender, non-distended - Integumentary Integumentary: Present: clear, warm - Musculoskeletal Musculoskeletal: strength equal bilaterally, generalized weakness - Psychiatric Psychiatric: appropriate mood/affect, cooperative - Neurologic Neurologic: moves all extremities Plan Activity: no restrictions, advance as tolerated, fall precautions Diet: diabetic, other (cardiac diet) Wound: other Additional Instructions: Follow up in [facility] ball truing machine operator [place] office with Dr. Mireles on 09/16/2020 @ 8:30AM. If you have worsening symptoms contact MD or go to emergency room. Your ball truing machine operator stopped Coreg/carvedilol medication. Do not take Coreg Follow up with: FLORY MICHAEL MD [Referring] - 3-5 Days DARRION MIRELES MD [Primary Care Provider] - 09/16/20 8:30 am
[2020-09-15 11:34] VITALS: BP 102/60
== END 2020-09-15 15:00 | disposition home or self-care (01) ==
LOC: ED 11:40 → 4A 15:12
PROVIDERS: ADMIT Internal Medicine; ATTEND Internal Medicine
DX: I49.5 Sick sinus syndrome (principal); I11.0 Hypertensive heart disease with heart failure; I50.21 Acute systolic (congestive) heart failure; I48.0 Paroxysmal atrial fibrillation; I25.5 Ischemic cardiomyopathy; I25.10 Atherosclerotic heart disease of native coronary artery without angina pectoris; N17.9 Acute kidney failure, unspecified; E11.9 Type 2 diabetes mellitus without complications; E78.5 Hyperlipidemia, unspecified; M79.7 Fibromyalgia; K74.60 Unspecified cirrhosis of liver; B01.9 Varicella without complication; D64.9 Anemia, unspecified; Z90.49 Acquired absence of other specified parts of digestive tract; Z95.1 Presence of aortocoronary bypass graft; Z98.890 Other specified postprocedural states; Z79.4 Long term (current) use of insulin
CPT/HCPCS: 36415; 70450; 71045; 80048; 80053; 81001; 82962; 84484; 85025; 93005; 96360; 99291; G0378; J7030